=== PATIENT | male | born 1950 | race African-American/Black ===

== ENCOUNTER 2017-01-31 08:00 | Day surgery (SDC) | payer MEDICARE, OTHER ==
[2017-01-27 14:44] VITALS: BMI 23.6
[~2017-01-31 08:00] MED LIST: SODIUM CHLORIDE 0.9% 1,000 ML in EMPTY BAG 1 BAG IV ONE
[2017-01-31 08:36] VITALS: TEMP 98.2
[2017-01-31] MEDS ORDERED: ASPIRIN 81 MG CHEW ONE (08:42)
[2017-01-31] MEDS ORDERED: ASPIRIN 81 MG CHEW PO ONE (08:42)
[2017-01-31 08:58] LABS: Anisocytosis Slight; Basophils % (A) 1 %; CH 32.1; CHCM 31.5; Eosinophils # (A) 0.1 k/uL (0-0.7); Eosinophils % (A) 1 %; HCT 36.2 % (39.0-53.0); HDW 3.29; Hypochromasia Moderate; Luc # (Auto) 0.13; Luc % (Auto) 2; Lymphocytes # (A) 0.4 k/uL (1.0-4.8); Lymphocytes % (A) 6 %; MCH 33.9 pg (25.0-35.0); MCHC 33.1 g/dL (31.0-37.0); MCV 102.4 fL (80.0-100.0); Macrocytosis Moderate; Mean Platelet Volume 8.2; Monocytes # (A) 0.7 k/uL (0-1.0); Monocytes % (A) 11 %; Neutrophils # (A) 5.1 k/uL (1.3-7.7); Neutrophils % (A) 79 %; RBC 3.53 m/uL (4.30-5.90); RDW 19.4 % (11.5-15.5); WBC 6.4 k/uL (3.8-10.6); WBC (Perox) 6.57
[2017-01-31] MEDS ORDERED: MIDAZOLAM 2 MG/2 ML VIAL IVP ONE (08:58)
[2017-01-31 09:03] LABS: Potassium 5.3 mmol/L (3.5-5.1)
[2017-01-31] MEDS ORDERED: LIDOCAINE 2% INJ 20 MG/ML SQ ONE (09:04)
[2017-01-31] MEDS ORDERED: IODIXANOL 320 MG/ML 100 ML INTRAARTER ONE (09:26)
[2017-01-31] MEDS ORDERED: SODIUM CHLORIDE 0.9% 1,000 ML IV SCH (09:30)
--- NOTE | 2017-01-31 10:26 | IR ---
EXAMINATION TYPE: IR angio abdominal w runoff DATE OF EXAM: 01/31/2017 9:50 AM COMPARISON: NONE HISTORY: Peripheral vascular occlusive disease. Fluoroscopy was applied to the referring clinician. See dictated report from cardiology.
[2017-01-31] MEDS ORDERED: ACETAMINOPHEN TAB 325 MG TAB ONE (10:42)
[2017-01-31] MEDS ORDERED: ACETAMINOPHEN TAB 500 MG TAB PO STA (10:45)
--- NOTE | 2017-01-31 11:09 | PCN ---
DATE OF PROCEDURE: 01/31/2017 PERFORMING PHYSICIAN: Tunde Navarrete MD, derrick helper. PROCEDURE PERFORMED: 1. An abdominal aortogram. 2. Bilateral lower extremity runoff. INDICATION: This is a pleasant 66-year-old gentleman with a known history of end-stage renal disease on hemodialysis as well as known history of coronary artery disease and prior coronary artery bypass grafting as well as multiple comorbid conditions was diagnosed with critical limb ischemia (CLI) affecting the left foot. He has been struggling with nonhealing ulcer involving the third and fourth toe on the left side. He has been seeing Dr. Levy at the wound clinic as well. He was seen and evaluated by Dr. Sparks who recommended proceeding with an abdominal aortogram and bilateral lower extremity runoff. APPROACH: Right common femoral artery. COMPLICATIONS: None. LEVEL OF SEDATION: Moderate. PROCEDURE DESCRIPTION: After obtaining an informed consent, the patient was brought to the cardiac slab tripper. The right common femoral artery was cannulated using micropuncture technique. The micropuncture wire passed easily, then I placed a 5 Australian sheath 11 cm in the right common femoral artery. After that, I did an abdominal aortogram and bilateral lower extremity runoff using 5 Australian pigtail catheter which was initially placed at the level of the renal arteries then it was pulled into above the bifurcation of the aorta into right and left common iliac arteries. The procedure was completed without any complication. SELECTIVE PERIPHERAL ANGIOGRAM: 1. The abdominal aorta is heavily calcified with mild disease only. 2. Common iliac arteries: The right common iliac artery appeared to be also heavily calcified with mild disease only. The left common iliac artery appeared to be also heavily calcified with mild disease only. 3. The external iliac arteries: The right and left external iliac arteries appeared to be severely diseased. 4. The internal iliac arteries: The right and left internal iliac arteries seem to be patent. 5. The common femoral arteries. The right and left common femoral arteries are also heavily calcified with severe lesions bilaterally. 6. SFA: The right and left SFA are occluded on a long segment. 7. PROFUNDA: The right and left profunda are patent. The left profunda has severe lesion by the ostium as well as the right profunda. 8. POPLITEAL: The right and left popliteal are occluded. 9. BELOW THE KNEE: I could not see any opacification of any vessels below the knee bilaterally. CONCLUSION: 1. Heavily calcified peripheral arterial system. 2. Severe aortoiliac disease with severe disease involving the external iliac arteries bilaterally. 3. Severe femoropopliteal disease with severe disease involving the common femoral arteries bilaterally. 4. Severe disease affecting the profunda bilaterally. 5. Occluded bilateral superficial femoral artery. 6. Poor runoff below the knee bilaterally. POSTPROCEDURE MANAGEMENT: I discussed with the patient and his the finding. The patient is not a candidate for any surgical revascularization. The only thing he might benefit from is opening his iliac artery and opening the profunda and increasing the blood flow to collateral hoping that will heal his ulcer. PROFUNDA: And decreasing the blood flow to her collaterals hoping that it will heal his ulcer.
[2017-01-31 11:19] VITALS: RESP 16
--- NOTE | 2017-01-31 11:37 | LTR ---
January 31, 2017 BAILEY SPARKS DO RE: Jeovanny Flynn Dear Dr. Sparks: Mr. Jeovanny Flynn underwent a peripheral angiogram. As you remember, he is a pleasant 66-year-old gentleman with end-stage renal disease on hemodialysis, who was struggling with critical limb ischemia involving the left foot. The study today showed severe underlying peripheral arterial disease with occluded femoral artery bilaterally and no blood flow from the knee and down bilaterally as well. The only option left for this gentleman is to open his profunda and increase the blood flow to the collateral hoping that will help in healing that ulcer. Thank you for allowing me to participate in his care and please do not hesitate to call if you have any questions or concerns. Sincerely, ANGELES PENN MD
[2017-01-31 13:54] VITALS: PULSE 92
[2017-01-31 15:52] VITALS: BP 145/78
== END 2017-01-31 15:48 | disposition home or self-care (01) ==
LOC: CATHCVL 08:00
PROVIDERS: ATTEND Internal Medicine Interventional Cardiology
DX: I70.203 Unspecified atherosclerosis of native arteries of extremities, bilateral legs (principal); I70.0 Atherosclerosis of aorta; I73.9 Peripheral vascular disease, unspecified; I77.9 Disorder of arteries and arterioles, unspecified; I99.8 Other disorder of circulatory system; L97.529 Non-pressure chronic ulcer of other part of left foot with unspecified severity; E78.2 Mixed hyperlipidemia; I12.0 Hypertensive chronic kidney disease with stage 5 chronic kidney disease or end stage renal disease; N18.6 End stage renal disease; Z99.2 Dependence on renal dialysis; I25.10 Atherosclerotic heart disease of native coronary artery without angina pectoris; Z95.1 Presence of aortocoronary bypass graft; Z95.5 Presence of coronary angioplasty implant and graft; Z95.0 Presence of cardiac pacemaker; Z79.02 Long term (current) use of antithrombotics/antiplatelets; Z79.82 Long term (current) use of aspirin; Z79.899 Other long term (current) drug therapy; Z88.1 Allergy status to other antibiotic agents; Z88.0 Allergy status to penicillin; Z88.8 Allergy status to other drugs, medicaments and biological substances; Z87.891 Personal history of nicotine dependence
CPT/HCPCS: 36200; 75625; 75716; 80048; 85025; 99153; 99152; C1894; C1769 ×2; J2001; J2250; Q9967

== ENCOUNTER 2017-02-16 08:22 | Inpatient (IN) | payer MEDICARE, OTHER ==
[2017-02-16] MEDS ORDERED: SODIUM CHLORIDE 0.9% 500 ML IV STA (09:11)
[2017-02-16] MEDS ORDERED: MORPHINE SULFATE 4 MG/ML SYRINGE IV STA (09:11)
[2017-02-16 09:38] LABS: Anisocytosis Moderate; Basophils % (A) 1 %; CH 32.7; CHCM 31.1; Eosinophils # (A) 0.1 k/uL (0-0.7); Eosinophils % (A) 1 %; HCT 37.9 % (39.0-53.0); HGB 11.8 gm/dL (13.0-17.5); Hypochromasia Moderate; Luc % (Auto) 3; Lymphocytes # (A) 0.5 k/uL (1.0-4.8); Lymphocytes % (A) 7 %; MCHC 31.2 g/dL (31.0-37.0); MCV 105.7 fL (80.0-100.0); Macrocytosis Marked; Mean Platelet Volume 8.1; Monocytes # (A) 0.6 k/uL (0-1.0); Monocytes % (A) 9 %; Neutrophils # (A) 5.6 k/uL (1.3-7.7); Neutrophils % (A) 79 %; RBC 3.58 m/uL (4.30-5.90); RDW 20.3 % (11.5-15.5)
[2017-02-16 09:46] LABS: INR 1.1 (<1.1); Prothrombin Time 11.5 sec (9.0-12.0)
[2017-02-16 09:50] LABS: Calcium 9.7 mg/dL (8.4-10.2); Magnesium 2.2 mg/dL (1.6-2.3); Phosphorous 5.7 mg/dL (2.5-4.5); Total Bilirubin 1.1 mg/dL (0.2-1.3); Total Protein 8.4 g/dL (6.3-8.2)
--- NOTE | 2017-02-16 10:00 | XR ---
EXAMINATION TYPE: XR chest 2V DATE OF EXAM: 02/16/2017 9:44 AM COMPARISON: Prior chest x-ray 15 November 2015 HISTORY: Weakness and chest pain TECHNIQUE: Frontal and lateral views of the chest are obtained. FINDINGS: The patient is post median sternotomy. There has been interval placement of a pacemaker in the right pectoral region, leads are present in the right atrium and ventricle. There is no evident pneumothorax. Heart remains enlarged. Blunting of the costophrenic angle on the right is stable. The aorta is dense. Interstitium is somewhat improved. IMPRESSION: Stable cardiomegaly. There may be chronic pleural reaction. There may be improvement in patient's volume status, follow-up as indicated.
--- NOTE | 2017-02-16 10:00 | ED ---
General Adult HPI - General Chief complaint: Chest Pain Stated complaint: chest pain Time Seen by Provider: 02/16/17 08:57 Source: patient, family, RN notes reviewed, old records reviewed Mode of arrival: wheelchair Limitations: no limitations - History of Present Illness Initial comments: Is a 66-year-old male the ER for evaluation. Patient coming in for evaluation of pain, multiple areas of pain. Patient does suffer from arterial disease preferring arterial disease. Patient complaining of left toe pain left great toe pain which is chronic in nature, patient also has chest pain and bilateral shoulder pain. Patient has had a little bit of shortness of breath ground for a few days but just generally does not feel well. Patient's taking Tylenol for pain at home with no help. No nausea vomiting abdominal pain or diarrhea. No fevers - Related Data Home Medications Medication Instructions Recorded Confirmed Allopurinol [Zyloprim] 100 mg PO DAILY 06/17/14 02/16/17 Albuterol Nebulized [Ventolin 2.5 mg INHALATION RT-Q4H PRN 01/27/17 02/16/17 Nebulized] Budesonide [Pulmicort] 0.25 mg INHALATION RT-BID PRN 01/27/17 02/16/17 Cinacalcet [Sensipar] 30 mg PO MOTUWETHFR 01/27/17 02/16/17 Sevelamer [Renvela] 1,600 mg PO AC-TID 01/27/17 02/16/17 Sildenafil [Revatio] 20 mg PO TID 01/27/17 02/16/17 Acetaminophen [Tylenol] 1,000 mg PO Q4-6H PRN 01/31/17 02/16/17 Previous Rx's Medication Instructions Recorded Aspirin EC [Ecotrin Low Dose] 81 mg PO DAILY #60 tablet. 11/19/15 Clopidogrel [Plavix] 75 mg PO DAILY #60 tab 11/19/15 Ezetimibe [Zetia] 10 mg PO DAILY #60 tab 11/19/15 Metoprolol Succinate [Toprol XL] 25 mg PO DAILY #60 tab 11/19/15 Allergies Allergy/AdvReac Type Severity Reaction Status Date / Time ciprofloxacin [From Cipro] Allergy Intermediate Itching Verified 02/16/17 09:34 ciprofloxacin HCl Allergy Intermediate Itching Verified 02/16/17 09:34 [From Cipro] lorazepam [From Ativan] Allergy Intermediate Confusion Verified 02/16/17 09:34 Penicillins Allergy Intermediate Rash/Hives Verified 02/16/17 09:34 Vhlhsmo-Yeh-Zwa Reductase Allergy Intermediate Unknown Verified 02/16/17 09:34 Inhibitor Review of Systems ROS Statement: Those systems with pertinent positive or pertinent negative responses have been documented in the HPI. ROS Other: All systems not noted in ROS Statement are negative. Past Medical History Past Medical History: Coronary Artery Disease (CAD), Chest Pain / Angina, Heart Failure, Hyperlipidemia, Hypertension, Osteoarthritis (OA), Renal Disease, Sleep Apnea/CPAP/BIPAP Additional Past Medical History / Comment(s): Anemia, renal failure with dialysis M.W.F, uremic pericarditis, cardiomyopathy, , anemia of chronic disease , congestive heart failure History of Any Multi-Drug Resistant Organisms: None Reported Past Surgical History: Heart Catheterization, Heart Catheterization With Stent, Orthopedic Surgery, Pacemaker Additional Past Surgical History / Comment(s): R PATELLAR TENDON REPAIR, L ANKLE FX WITH SURGICAL REPAIR. COLONOSCOPIES WHICH HAVE BEEN NORMAL. vein stripping in anastasia. legs Past Anesthesia/Blood Transfusion Reactions: Motion Sickness, Postoperative Nausea & Vomiting (PONV) Additional Past Anesthesia/Blood Transfusion Reaction / Comment(s): PT HAS RECIEVED BLOOD WITHOUT REACTION Date of Last Stent Placement:: 11/18/2015 Type of Cardiac Device: Permanent Pacemaker Device Placement Date:: 09/29/2016 Past Psychological History: No Psychological Hx Reported Additional Psychological History / Comment(s): PT LIVE S WITH AT HOME. HE IS NORMALLY FAIRLY INDEPENDENT HOWEVER HE DOES TIRE EASILY. PT DRIVES A CAR. Smoking Status: Former smoker Past Alcohol Use History: None Reported Past Drug Use History: None Reported - Past Family History Brother(s) Family Medical History: Cancer Additional Family Medical History / Comment(s): breast, bone Father Family Medical History: Renal Disease Additional Family Medical History / Comment(s): FATHER AT AGE 47 YRS. Mother Family Medical History: Coronary Artery Disease (CAD) Additional Family Medical History / Comment(s): MOTHER AT AGE 83YRS. General Exam Limitations: no limitations General appearance: alert, in no apparent distress Head exam: Present: atraumatic, normocephalic, normal inspection Eye exam: Present: normal appearance, PERRL, EOMI. Absent: scleral icterus, conjunctival injection, periorbital swelling ENT exam: Present: normal exam, mucous membranes moist Neck exam: Present: normal inspection. Absent: tenderness, meningismus, lymphadenopathy Respiratory exam: Present: normal lung sounds bilaterally. Absent: respiratory distress, wheezes, rales, rhonchi, stridor Cardiovascular Exam: Present: regular rate, normal rhythm, normal heart sounds. Absent: systolic murmur, diastolic murmur, rubs, gallop, clicks GI/Abdominal exam: Present: soft, normal bowel sounds. Absent: distended, tenderness, guarding, rebound, rigid Extremities exam: Present: normal inspection, full ROM, normal capillary refill. Absent: tenderness, pedal edema, joint swelling, calf tenderness Back exam: Present: normal inspection Neurological exam: Present: alert, oriented X3, CN II-XII intact Psychiatric exam: Present: normal affect, normal mood Skin exam: Present: warm, dry, intact, normal color. Absent: rash Course Vital Signs 02/16/17 02/16/17 08:24 10:03 Temperature 98.1 F Pulse Rate 104 H 97 Respiratory 20 20 Rate Blood Pressure 122/64 137/83 O2 Sat by Pulse 97 96 Oximetry - Reevaluation(s) Reevaluation #1: 02/16/17 10:27 Patient is having adequate pain control at this time, resting comfortably EKG Findings - EKG Comments: EKG Findings:: EKG shows paced rhythm rate of 106, AL 174, QRS 110, QTC 496 Medical Decision Making - Medical Decision Making 66 mailed to the ER for evaluation. Patient presents today for evaluation of chest pain, shoulder pain, left toe pain. History of arterial disease peripheral arterial disease, patient having difficulty with pain control. Patient be admitted for cardiac observation and pain control, - Lab Data Result diagrams: 02/16/17 08:45 02/16/17 08:45 Lab Results 02/16/17 02/16/17 02/16/17 Range/Units 08:45 08:45 08:45 WBC 7.0 (3.8-10.6) k/uL RBC 3.58 L (4.30-5.90) m/uL Hgb 11.8 L (13.0-17.5) gm/dL Hct 37.9 L (39.0-53.0) % MCV 105.7 H (80.0-100.0) fL MCH 33.0 (25.0-35.0) pg MCHC 31.2 (31.0-37.0) g/dL RDW 20.3 H (11.5-15.5) % Plt Count 197 (150-450) k/uL Neutrophils % 79 % Lymphocytes % 7 % Monocytes % 9 % Eosinophils % 1 % Basophils % 1 % Neutrophils # 5.6 (1.3-7.7) k/uL Lymphocytes # 0.5 L (1.0-4.8) k/uL Monocytes # 0.6 (0-1.0) k/uL Eosinophils # 0.1 (0-0.7) k/uL Basophils # 0.0 (0-0.2) k/uL Manual Slide Review Performed Hypochromasia Moderate Poikilocytosis (manual Present Anisocytosis Moderate Macrocytosis Marked PT (9.0-12.0) sec INR (<1.1) APTT (22.0-30.0) sec Sodium 139 (137-145) mmol/L Potassium 5.0 (3.5-5.1) mmol/L Chloride 91 L (98-107) mmol/L Carbon Dioxide 28 (22-30) mmol/L Anion Gap 20 mmol/L BUN 36 H (9-20) mg/dL Creatinine 7.07 H* (0.66-1.25) mg/dL Est GFR (MDRD) Af Amer 9 (>60 ml/min/1.73 sqM) Est GFR (MDRD) Non-Af 8 (>60 ml/min/1.73 sqM) Glucose 135 H (74-99) mg/dL Calcium 9.7 (8.4-10.2) mg/dL Phosphorus 5.7 H (2.5-4.5) mg/dL Magnesium 2.2 (1.6-2.3) mg/dL Total Bilirubin 1.1 (0.2-1.3) mg/dL AST 29 (17-59) U/L ALT 23 (21-72) U/L Alkaline Phosphatase 133 H (38-126) U/L Total Creatine Kinase 35 L (55-170) U/L CK-MB (CK-2) 1.7 (0.0-2.4) ng/mL CK-MB (CK-2) Rel Index 4.9 Troponin I 0.059 H* (0.000-0.034) ng/mL Total Protein 8.4 H (6.3-8.2) g/dL Albumin 4.8 (3.5-5.0) g/dL 02/16/17 Range/Units 08:45 WBC (3.8-10.6) k/uL RBC (4.30-5.90) m/uL Hgb (13.0-17.5) gm/dL Hct (39.0-53.0) % MCV (80.0-100.0) fL MCH (25.0-35.0) pg MCHC (31.0-37.0) g/dL RDW (11.5-15.5) % Plt Count (150-450) k/uL Neutrophils % % Lymphocytes % % Monocytes % % Eosinophils % % Basophils % % Neutrophils # (1.3-7.7) k/uL Lymphocytes # (1.0-4.8) k/uL Monocytes # (0-1.0) k/uL Eosinophils # (0-0.7) k/uL Basophils # (0-0.2) k/uL Manual Slide Review Hypochromasia Poikilocytosis (manual Anisocytosis Macrocytosis PT 11.5 (9.0-12.0) sec INR 1.1 (<1.1) APTT 25.0 (22.0-30.0) sec Sodium (137-145) mmol/L Potassium (3.5-5.1) mmol/L Chloride (98-107) mmol/L Carbon Dioxide (22-30) mmol/L Anion Gap mmol/L BUN (9-20) mg/dL Creatinine (0.66-1.25) mg/dL Est GFR (MDRD) Af Amer (>60 ml/min/1.73 sqM) Est GFR (MDRD) Non-Af (>60 ml/min/1.73 sqM) Glucose (74-99) mg/dL Calcium (8.4-10.2) mg/dL Phosphorus (2.5-4.5) mg/dL Magnesium (1.6-2.3) mg/dL Total Bilirubin (0.2-1.3) mg/dL AST (17-59) U/L ALT (21-72) U/L Alkaline Phosphatase (38-126) U/L Total Creatine Kinase (55-170) U/L CK-MB (CK-2) (0.0-2.4) ng/mL CK-MB (CK-2) Rel Index Troponin I (0.000-0.034) ng/mL Total Protein (6.3-8.2) g/dL Albumin (3.5-5.0) g/dL - Radiology Data Radiology results: report reviewed (Chest x-ray is negative for acute disease), image reviewed Disposition Clinical Impression: S/P CABG x 5, S/P cardiac catheterization, End stage renal disease on dialysis , Toe pain, left, PAD (peripheral artery disease), Chest pain Disposition: ADMITTED IP TO THIS HOSP Condition: Fair Referrals: Xochitl Sparks DO [Primary Care Provider] - 1-2 days
[2017-02-16 10:09] LABS: Manual Review Performed
[2017-02-16 10:12] LABS: Creatine Kinase MB 1.7 ng/mL (0.0-2.4)
[2017-02-16 10:15] LABS: Troponin I 0.059 ng/mL (0.000-0.034)
[2017-02-16] MEDS ORDERED: NITROGLYCERIN SL TABS 0.4 MG TAB SUBLINGUAL PRN ×2 (10:24→15:10)
[2017-02-16] MEDS ORDERED: HEPARIN SODIUM,PORCINE 5,000 UNIT/ML 1 ML VIAL IV ONE (10:24)
[2017-02-16] MEDS: HEPARIN SODIUM,PORCINE/D5W PMX 25,000 UNIT in DEXTROSE/WATER 1 500ML.BAG IV SCH (13:04)
[2017-02-16] MEDS: MORPHINE SULFATE 4 MG/ML SYRINGE IV PRN ×2 (14:05→20:06)
[2017-02-16] MEDS ORDERED: ALBUTEROL NEBULIZED 2.5 MG/3 ML INHALATION PRN (14:39)
[2017-02-16] MEDS ORDERED: BUDESONIDE 0.25 MG/2 ML NEBU INHALATION PRN (14:39)
[2017-02-16] MEDS ORDERED: ACETAMINOPHEN TAB 500 MG TAB PO PRN (14:39)
--- NOTE | 2017-02-16 15:09 | P.HPIM ---
History of Present Illness H&P Date: 02/16/17 Chief Complaint: Bilateral leg pain with chest pain This is a 66-year-old male, a patient of . He has a known past medical history of end-stage renal disease, PAD, hypertension, coronary artery disease with previous stent and CABG 5 vessels, pacemaker, severe pulmonary hypertension and congestive heart failure. Patient presents to the emergency room with complaints of severe bilateral leg pain. He states that when the legs start hurting so severe he does start to have chest pain. Patient no has known peripheral arterial disease has been seen by Dr. Vivar and had an angiogram on 01/31/2017 which showed severe peripheral arterial disease with occluded femoral artery bilaterally and no blood flow from the knee down bilaterally. He was to follow-up with Dr. Vivar to set up appointment for procedure. However since then he is had worsening pain. He states he was just taking Tylenol for pain with no improvement. Patient is been placed on IV heparin and IV morphine for pain. Cardiology has been consulted. He is also followed up with Dr. Levy in the wound care center at [facility]. Patient has been doing topical creams to this area. There is drainage noted on the ulcers of his toes. He has ulcers on toe 3 and 4. These will be cultured. Troponin 0.059. EKG had shown atrial paced rhythm chest x-ray had shown chronic pleural reaction improvement in volume status. Patient denies any fever , chills, sweats. Denies any shortness of breath. Denies a nausea vomiting. Denies any bowel movement changes. And he does still make some urine. Review of Systems Please refer to HPI otherwise unremarkable Past Medical History Past Medical History: Coronary Artery Disease (CAD), Chest Pain / Angina, Heart Failure, GI Bleed, Hyperlipidemia, Hypertension, Osteoarthritis (OA), Pneumonia , Renal Disease, Sleep Apnea/CPAP/BIPAP, Vascular Disorder Additional Past Medical History / Comment(s): Anemia, renal failure with dialysis M.W.F, uremic pericarditis, cardiomyopathy, PAD, current L foot 3rd and 4th toe wounds-seeing Dr. Levy in [facility], ESRD with hemodialysis M,W, F last received yesterday, numbness/tingling bilateral feet, bilateral foot gout, O2 at 4L/NC ATC, past pleural effusions, lower GI bleed. History of Any Multi-Drug Resistant Organisms: None Reported Past Surgical History: Appendectomy, Coronary Bypass/CABG, Heart Catheterization , Heart Catheterization With Stent, Orthopedic Surgery, Pacemaker Additional Past Surgical History / Comment(s): 01/31/17 abdominal aortogram with bilateral extremity run-off, 08/19/14 CABG 5 vessel several cardiac caths, PCI with stents, debridement L foot wound, R PATELLAR TENDON REPAIR, L ANKLE FX WITH SURGICAL REPAIR. EGD/COLONOSCOPIES WHICH HAVE BEEN NORMAL. vein stripping in anastasia. legs, 2011 throacenttesis, 2009 AV fistual L upper arm, Past Anesthesia/Blood Transfusion Reactions: Motion Sickness, Postoperative Nausea & Vomiting (PONV) Additional Past Anesthesia/Blood Transfusion Reaction / Comment(s): PT HAS RECIEVED BLOOD WITHOUT REACTION Date of Last Stent Placement:: 09/30/16 Type of Cardiac Device: Permanent Pacemaker Device Placement Date:: 09/29/2016 Past Psychological History: No Psychological Hx Reported Additional Psychological History / Comment(s): PT LIVES WITH OF 44 YRS AT HOME. HE IS NORMALLY FAIRLY INDEPENDENT HOWEVER HE DOES TIRE EASILY. PT NORMALLY DRIVES A CAR. HE USES A CANE OR WALKER PRN. HE IS ON O2 AT 4L/NC ATC. HE HAS [facility]. HE HAS A NEBULIZER. Smoking Status: Former smoker Past Alcohol Use History: None Reported Additional Past Alcohol Use History / Comment(s): Pt started smoking in 1968 and quit in 2003. Past Drug Use History: None Reported - Past Family History Brother(s) Family Medical History: Cancer Additional Family Medical History / Comment(s): breast, bone Father Family Medical History: Renal Disease Additional Family Medical History / Comment(s): FATHER AT AGE 47 YRS FROM KIDNEY FAILURE. Mother Family Medical History: Coronary Artery Disease (CAD) Additional Family Medical History / Comment(s): MOTHER AT AGE 83YRS. Medications and Allergies Home Medications Medication Instructions Recorded Confirmed Type Allopurinol [Zyloprim] 100 mg PO DAILY 06/17/14 02/16/17 History Albuterol Nebulized [Ventolin 2.5 mg INHALATION RT-Q4H PRN 01/27/17 02/16/17 History Nebulized] Budesonide [Pulmicort] 0.25 mg INHALATION RT-BID PRN 01/27/17 02/16/17 History Cinacalcet [Sensipar] 30 mg PO MOTUWETHFR 01/27/17 02/16/17 History Sevelamer [Renvela] 1,600 mg PO AC-TID 01/27/17 02/16/17 History Sildenafil [Revatio] 20 mg PO TID 01/27/17 02/16/17 History Acetaminophen [Tylenol] 1,000 mg PO Q4-6H PRN 01/31/17 02/16/17 History Allergies Allergy/AdvReac Type Severity Reaction Status Date / Time ciprofloxacin [From Cipro] Allergy Intermediate Itching Verified 02/16/17 09:34 ciprofloxacin HCl Allergy Intermediate Itching Verified 02/16/17 09:34 [From Cipro] lorazepam [From Ativan] Allergy Intermediate Confusion Verified 02/16/17 09:34 Penicillins Allergy Intermediate Rash/Hives Verified 02/16/17 09:34 [id number] Reductase Allergy Intermediate Unknown Verified 02/16/17 09:34 Inhibitor Physical Exam Vitals: Vital Signs Pulse Pulse Resp BP BP Pulse Ox 02/16/17 12:50 98 18 131/82 94 L 02/16/17 11:15 95 18 118/80 96 02/16/17 10:45 94 18 141/92 94 L Head normocephalic Neck supple Lungs clear to auscultation bilaterally no wheezing or crackles Heart regular rate and rhythm S1-S2, no rub or gallop positive murmur Abdomen is soft nontender distended positive bowel sounds no hepatosplenomegaly Extremities no edema. Both legs are tender with palpation. Left foot ulcers on toes 3 and 4 draining pus. Ulcers between the toes. Neuro alert and orientated to 3 Results CBC & Chem 7: 02/16/17 08:45 02/16/17 08:45 Thrombosis Risk Factor Assmnt - Choose All That Apply Any of the Below Risk Factors Present?: Yes Each Factor Represents 1 point: Medical pt on bed rest Other Risk Factors: Yes Each Risk Factor Represents 2 Points: Age 61-74 years Other congenital or acquired thrombophilia - If yes, enter type in comment: No Thrombosis Risk Factor Assessment Total Risk Factor Score: 3 Thrombosis Risk Factor Assessment Level: Moderate Risk Assessment and Plan Plan: 1. Severe Peripheral arterial disease with ulcers on toes 3 and 4 on left foot. Patient had angiogram in 01/31/2017 showing occluded femoral artery bilaterally and no blood flow from the knee down bilaterally. Patient be placed on IV heparin. After Sk[facility] has been consulted. Infectious disease has also been consulted for wound care on those toes. We'll obtain culture of the toe drainage. 2. End-stage renal disease: Dialysis Monday. Nephrology has been consulted 3. History of coronary artery disease with previous cardiac stents and coronary bypass grafting 5 vessels in 2013 4. History of severe pulmonary hypertension on Revatio 5. Hyperphosphatemia continue home medication. Repeat phosphorus level in a.m. 6. Episodes of chest pain: Troponin 0.059. Cardiology consulted. 7. Essential hypertension GI prophylaxis Pepcid and DVT prophylaxis IV heparin Time with Patient: Greater than 30 (Greater than 50% of the total time spent in counseling and coordination of care.I performed an examination of the patient and discussed their management with the physician [employer]. I have reviewed the Physician [employer]'s notes and agree with the documented findings and plan of care)
[2017-02-16 16:02] LABS: Creatine Kinase MB 1.7 ng/mL (0.0-2.4)
[2017-02-16] MEDS: SEVELAMER 800 MG TAB PO SCH (16:22)
[2017-02-16] MEDS: SILDENAFIL 20 MG TAB PO SCH ×2 (16:23→22:18)
[2017-02-16 16:25] LABS: Troponin I 0.053 ng/mL (0.000-0.034)
[2017-02-16 21:53] LABS: Creatine Kinase MB 1.9 ng/mL (0.0-2.4)
[2017-02-16 22:00] LABS: Troponin I 0.05 ng/mL (0.000-0.034)
[2017-02-17] MEDS: MORPHINE SULFATE 4 MG/ML SYRINGE IV PRN ×3 (04:17→20:48)
[2017-02-17] MEDS: HEPARIN SODIUM,PORCINE 5,000 UNIT/ML 1 ML VIAL IV PRN ×2 (06:01→23:13)
[2017-02-17 06:06] LABS: Calcium 9.4 mg/dL (8.4-10.2); Potassium 5.4 mmol/L (3.5-5.1); Total Bilirubin 0.9 mg/dL (0.2-1.3); Total Protein 7.6 g/dL (6.3-8.2)
[2017-02-17] MEDS: SEVELAMER 800 MG TAB PO SCH ×4 (07:14→19:07)
--- NOTE | 2017-02-17 08:48 | P.CRDCN ---
History of Present Illness Consult date: 02/17/17 Requesting physician: Betty Roe Consult reason: chest pain Chief complaint: Left Foot pain and chest pain History of present illness: This is a pleasant 66-year-old -[place] gentleman who follows with Dr. Vivar in the office. He has known history of end-stage renal disease on hemodialysis, coronary artery disease with prior bypass surgery, prior stent placement, prior pacemaker, hypertension, hyperlipidemia, peripheral vascular disease, who was recently in the hospital in January of this year at which time he underwent an abdominal aortogram with bilateral lower extremity runoff by Dr. Vivar. Patient was found to have a heavily calcified peripheral arterial system with severe aortoiliac disease involving the external iliac arteries bilaterally. Severe femoral popliteal disease with severe disease involving the common femoral arteries bilaterally, severe disease affecting the profunda bilaterally and occluded bilateral superficial femoral artery. He presents to the hospital on this occasion with symptoms of severe pain in his left foot, subsequent to that patient states he developed upper chest discomfort with radiation to the shoulders. At the time of my examination this morning his main complaint is that of mild nausea and considerable pain in his left great toe and foot. Chest X-ray on admission revealed stable cardiomegaly. EKG shows atrial sensed V paced rhythm. Hemoglobin 11.8, potassium 5.4, U and 48, creatinine 8.7. Troponins 0.05.05.05. Blood Pressure 122/76 with a heart rate of 100 temperature 97.9. Past Medical History Past Medical History: Coronary Artery Disease (CAD), Chest Pain / Angina, Heart Failure, GI Bleed, Hyperlipidemia, Hypertension, Osteoarthritis (OA), Pneumonia , Renal Disease, Sleep Apnea/CPAP/BIPAP, Vascular Disorder Additional Past Medical History / Comment(s): Anemia, renal failure with dialysis M.W.F, uremic pericarditis, cardiomyopathy, PAD, current L foot 3rd and 4th toe wounds-seeing Dr. Leyv in [facility], ESRD with hemodialysis M,W, F last received yesterday, numbness/tingling bilateral feet, bilateral foot gout, O2 at 4L/NC ATC, past pleural effusions, lower GI bleed. History of Any Multi-Drug Resistant Organisms: None Reported Past Surgical History: Appendectomy, Coronary Bypass/CABG, Heart Catheterization , Heart Catheterization With Stent, Orthopedic Surgery, Pacemaker Additional Past Surgical History / Comment(s): 01/31/17 abdominal aortogram with bilateral extremity run-off, 08/19/14 CABG 5 vessel several cardiac caths, PCI with stents, debridement L foot wound, R PATELLAR TENDON REPAIR, L ANKLE FX WITH SURGICAL REPAIR. EGD/COLONOSCOPIES WHICH HAVE BEEN NORMAL. vein stripping in anastasia. legs, 2011 throacenttesis, 2009 AV fistual L upper arm, Past Anesthesia/Blood Transfusion Reactions: Motion Sickness, Postoperative Nausea & Vomiting (PONV) Additional Past Anesthesia/Blood Transfusion Reaction / Comment(s): PT HAS RECIEVED BLOOD WITHOUT REACTION Date of Last Stent Placement:: 09/30/16 Type of Cardiac Device: Permanent Pacemaker Device Placement Date:: 09/29/2016 Past Psychological History: No Psychological Hx Reported Additional Psychological History / Comment(s): PT LIVES WITH OF 44 YRS AT HOME. HE IS NORMALLY FAIRLY INDEPENDENT HOWEVER HE DOES TIRE EASILY. PT NORMALLY DRIVES A CAR. HE USES A CANE OR WALKER PRN. HE IS ON O2 AT 4L/NC ATC. HE HAS [facility]. HE HAS A NEBULIZER. Smoking Status: Former smoker Past Alcohol Use History: None Reported Additional Past Alcohol Use History / Comment(s): Pt started smoking in 1968 and quit in 2003. Past Drug Use History: None Reported - Past Family History Brother(s) Family Medical History: Cancer Additional Family Medical History / Comment(s): breast, bone Father Family Medical History: Renal Disease Additional Family Medical History / Comment(s): FATHER AT AGE 47 YRS FROM KIDNEY FAILURE. Mother Family Medical History: Coronary Artery Disease (CAD) Additional Family Medical History / Comment(s): MOTHER AT AGE 83YRS. Medications and Allergies Home Medications Medication Instructions Recorded Confirmed Type Allopurinol [Zyloprim] 100 mg PO DAILY 06/17/14 02/16/17 History Albuterol Nebulized [Ventolin 2.5 mg INHALATION RT-Q4H PRN 01/27/17 02/16/17 History Nebulized] Budesonide [Pulmicort] 0.25 mg INHALATION RT-BID PRN 01/27/17 02/16/17 History Cinacalcet [Sensipar] 30 mg PO MOTUWETHFR 01/27/17 02/16/17 History Sevelamer [Renvela] 1,600 mg PO AC-TID 01/27/17 02/16/17 History Sildenafil [Revatio] 20 mg PO TID 01/27/17 02/16/17 History Acetaminophen [Tylenol] 1,000 mg PO Q4-6H PRN 01/31/17 02/16/17 History Allergies Allergy/AdvReac Type Severity Reaction Status Date / Time ciprofloxacin [From Cipro] Allergy Intermediate Itching Verified 02/16/17 09:34 ciprofloxacin HCl Allergy Intermediate Itching Verified 02/16/17 09:34 [From Cipro] lorazepam [From Ativan] Allergy Intermediate Confusion Verified 02/16/17 09:34 Penicillins Allergy Intermediate Rash/Hives Verified 02/16/17 09:34 Shpnkux-Qhm-Fjo Reductase Allergy Intermediate Unknown Verified 02/16/17 09:34 Inhibitor Physical Exam Vitals: Vital Signs Temp Pulse Pulse Resp BP BP Pulse Ox 02/17/17 04:00 97.9 F 99 18 124/84 98 02/17/17 00:00 98.3 F 99 18 121/93 97 02/16/17 20:00 97.0 F L 99 18 127/74 99 02/16/17 15:55 93 18 135/90 97 02/16/17 15:08 94 16 134/88 98 02/16/17 12:50 98 18 131/82 94 L 02/16/17 11:15 95 18 118/80 96 02/16/17 10:45 94 18 141/92 94 L Intake and Output 02/16/17 02/17/17 02/17/17 22:59 06:59 14:59 Intake Total 163.728 942.94 Balance 163.728 942.94 Intake: IV 740 Heparin Sodium,Porcine/ 140 D5w Pmx 25,000 unit In Dextrose/Water 1 500ml. bag @ 12 UNITS/KG/HR 17. 52 mls/hr IV .Q24H RU Rx #:[id number] Sodium Chloride 0.9% 500 600 ml @ 999 mls/hr IV .Q31M STA Rx#:[id number] Intake, IV Titration 53.728 202.94 Amount Heparin Sodium,Porcine/ 53.728 202.94 D5w Pmx 25,000 unit In Dextrose/Water 1 500ml. bag @ 12 UNITS/KG/HR 17. 52 mls/hr IV .Q24H RU Rx #:[id number] Oral 110 Other: # Voids 0 2 Weight 76 kg PHYSICAL EXAMINATION: HEENT: Head is atraumatic, normocephalic. Pupils equal, round. Neck is supple. There is no elevated jugular venous pressure. HEART EXAMINATION: Heart S1 and S2 systolic ejection murmur is heard. CHEST EXAMINATION: Lungs are clear to auscultation and precussion. No chest wall tenderness is noted on palpation or with deep breathing. ABDOMEN: Soft, nontender. Bowel sounds are heard. No organomegaly noted. EXTREMITIES:[ Doppler pulses popliteal. Right and left foot cool to the touch. NEUROLOGIC patient is awake, alert and oriented -3. . Results 02/16/17 08:45 02/17/17 05:18 Cardiac Enzymes 02/16/17 02/16/17 02/17/17 Range/Units 15:27 20:54 05:18 AST 18 (17-59) U/L CK-MB (CK-2) 1.7 1.9 (0.0-2.4) ng/mL Troponin I 0.053 H* 0.050 H* (0.000-0.034) ng/mL Coagulation 02/16/17 02/16/17 02/17/17 Range/Units 15:27 20:54 05:18 APTT 80.8 H 31.7 H 28.6 (22.0-30.0) sec Lipids 02/17/17 Range/Units 05:18 Triglycerides 77 (<150) mg/dL Cholesterol 147 (<200) mg/dL HDL Cholesterol 60 (40-60) mg/dL Comprehensive Metabolic Panel 02/17/17 Range/Units 05:18 Sodium 140 (137-145) mmol/L Potassium 5.4 H (3.5-5.1) mmol/L Chloride 93 L (98-107) mmol/L Carbon Dioxide 28 (22-30) mmol/L BUN 48 H (9-20) mg/dL Creatinine 8.79 H* (0.66-1.25) mg/dL Glucose 100 H (74-99) mg/dL Calcium 9.4 (8.4-10.2) mg/dL AST 18 (17-59) U/L ALT 23 (21-72) U/L Alkaline Phosphatase 127 H (38-126) U/L Total Protein 7.6 (6.3-8.2) g/dL Albumin 4.4 (3.5-5.0) g/dL Current Medications Generic Name Dose Route Start Last Admin Trade Name Freq PRN Reason Stop Dose Admin Acetaminophen 1,000 mg 02/16/17 14:39 Tylenol Tab PO Q6H PRN Moderate Pain Albuterol Sulfate 2.5 mg 02/16/17 14:39 Ventolin Nebulized INHALATION RT-Q4H PRN Dyspnea Allopurinol 100 mg 02/17/17 09:00 Zyloprim PO DAILY [facility] Aspirin 325 mg 02/17/17 09:00 Aspirin PO DAILY [facility] Budesonide 0.25 mg 02/16/17 14:39 Pulmicort INHALATION RT-BID PRN Dyspnea Cinacalcet 30 mg 02/17/17 09:00 Sensipar PO MOTUWETHFR [facility] Clopidogrel Bisulfate 75 mg 02/17/17 09:00 Plavix PO DAILY [facility] Ezetimibe 10 mg 02/17/17 09:00 Zetia PO DAILY [facility] Heparin Sodium (Porcine) 0 unit 02/16/17 10:24 02/17/17 06:01 Heparin IV 4,000 unit Q6HR PRN Administration Low PTT Protocol Heparin Sodium/Dextrose 25,000 500 mls @ 17.52 mls/hr 02/16/17 10:30 06:02 unit/ IV Solution IV 13 units/kg/hr .Q24H RU 18.98 mls/hr Protocol Titration 12 UNITS/KG/HR Metoprolol Succinate 25 mg 02/17/17 09:00 Toprol Xl PO DAILY [facility] Morphine Sulfate 4 mg 02/16/17 10:24 02/17/17 04:17 Morphine Sulfate (Inj) IV 4 mg Q4HR PRN Administration Chest Pain Nitroglycerin 0.4 mg 02/16/17 15:10 Nitrostat SUBLINGUAL Q5M PRN Chest Pain Sevelamer Carbonate 1,600 mg 02/16/17 17:30 02/17/17 07:16 Renvela PO Not Given AC-TID [facility] Sildenafil Citrate 20 mg 02/16/17 16:00 02/16/17 22:18 Revatio PO 20 mg TID RU Administration Intake and Output 02/16/17 02/17/17 02/17/17 22:59 06:59 14:59 Intake Total 163.728 942.94 Balance 163.728 942.94 Intake: IV 740 Heparin Sodium,Porcine/ 140 D5w Pmx 25,000 unit In Dextrose/Water 1 500ml. bag @ 12 UNITS/KG/HR 17. 52 mls/hr IV .Q24H RU Rx #:[id number] Sodium Chloride 0.9% 500 600 ml @ 999 mls/hr IV .Q31M STA Rx#:[id number] Intake, IV Titration 53.728 202.94 Amount Heparin Sodium,Porcine/ 53.728 202.94 D5w Pmx 25,000 unit In Dextrose/Water 1 500ml. bag @ 12 UNITS/KG/HR 17. 52 mls/hr IV .Q24H RU Rx #:[id number] Oral 110 Other: # Voids 0 2 Weight 76 kg 02/17/17 05:18 EKG Interpretations (text) EKG shows an A sensed V paced rhythm. Assessment and Plan Plan: Assessment and plan #1 symptoms of severe left foot pain in a patient with known peripheral vascular disease status post abdominal aortogram and bilateral lower extremity runoff in January, which revealed heavily calcified peripheral arterial system with severe aortoiliac disease involving the external iliac arteries bilaterally , severe femoropopliteal disease, severe disease affecting the profunda bilaterally and occluded bilateral superficial femoral artery. #2 chest pain, atypical in nature. Troponins 0.05, 0.05, 0.05, EKG shows a sensed V paced rhythm. Troponin abnormality likely secondary to abnormal renal function. #3 end-stage renal disease on hemodialysis #4 hypertension #5 hyperlipidemia #6 known history of coronary artery disease with prior bypass surgery and stent placements Plan At this time we're to continue the patient's IV heparin, continue aspirin as well as his other home medications. Further recommendations to follow. DNP note has been reviewed, I agree with a documented findings and plan of care. Patient was seen and examined.
[2017-02-17] MEDS ORDERED: NON-FORMULARY DRUG (Aspirin Ec 81 MG) PO SCH (09:00)
[2017-02-17] MEDS ORDERED: SIMETHICONE 80 MG CHEWABLE PO PRN (10:57)
--- NOTE | 2017-02-17 11:05 | P.PN ---
Subjective This is a 66-year-old male, a patient of . He has a known past medical history of end-stage renal disease, PAD, hypertension, coronary artery disease with previous stent and CABG 5 vessels, pacemaker, severe pulmonary hypertension and congestive heart failure. Patient presents to the emergency room with complaints of severe bilateral leg pain. He states that when the legs start hurting so severe he does start to have chest pain. Patient no has known peripheral arterial disease has been seen by Dr. Vivar and had an angiogram on 01/31/2017 which showed severe peripheral arterial disease with occluded femoral artery bilaterally and no blood flow from the knee down bilaterally. Patient also has ulcers on the toes of the left foot. Infectious disease and cardiogenic following. Patient is maintained on IV heparin. Pain is tolerable. Chest pain has resolved. Denies any nausea or vomiting. He does reports small bowel movement yesterday. Denies any difficulty urinating. Objective - Vital Signs Vital signs: Vital Signs Temp 97.9 F 02/17/17 08:00 Pulse 100 02/17/17 08:00 Resp 16 02/17/17 08:00 BP 123/76 02/17/17 08:00 Pulse Ox 95 02/17/17 08:00 Intake & Output 02/16/17 02/17/17 02/17/17 18:59 06:59 18:59 Intake Total 163.728 942.94 Balance 163.728 942.94 Weight 76 kg Intake: IV 740 Heparin Sodium,Porcine/ 140 D5w Pmx 25,000 unit In Dextrose/Water 1 500ml. bag @ 12 UNITS/KG/HR 17. 52 mls/hr IV .Q24H RU Rx #:[id number] Sodium Chloride 0.9% 500 600 ml @ 999 mls/hr IV .Q31M STA Rx#:[id number] Intake, IV Titration 53.728 202.94 Amount Heparin Sodium,Porcine/ 53.728 202.94 D5w Pmx 25,000 unit In Dextrose/Water 1 500ml. bag @ 12 UNITS/KG/HR 17. 52 mls/hr IV .Q24H RU Rx #:[id number] Oral 110 Other: # Voids 0 2 - Exam Head normocephalic Neck supple Lungs clear to auscultation bilaterally no wheezing or crackles Heart regular rate and rhythm S1-S2, no rub or gallop positive murmur Abdomen is soft nontender distended positive bowel sounds Extremities no edema. Both legs are tender with palpation. Left foot ulcers on toes 3 and 4 draining pus. Ulcers between the toes. Neuro alert and orientated to 3 - Labs CBC & Chem 7: 02/16/17 08:45 02/17/17 05:18 Labs: Abnormal Lab Results - Last 24 Hours (Table) 02/16/17 02/16/17 02/16/17 Range/Units 15:27 15:27 20:54 APTT 80.8 H (22.0-30.0) sec Potassium (3.5-5.1) mmol/L Chloride (98-107) mmol/L BUN (9-20) mg/dL Creatinine (0.66-1.25) mg/dL Glucose (74-99) mg/dL Phosphorus (2.5-4.5) mg/dL Alkaline Phosphatase (38-126) U/L Total Creatine Kinase 31 L 32 L (55-170) U/L Troponin I 0.053 H* 0.050 H* (0.000-0.034) ng/mL 02/16/17 02/17/17 Range/Units 20:54 05:18 APTT 31.7 H (22.0-30.0) sec Potassium 5.4 H (3.5-5.1) mmol/L Chloride 93 L (98-107) mmol/L BUN 48 H (9-20) mg/dL Creatinine 8.79 H* (0.66-1.25) mg/dL Glucose 100 H (74-99) mg/dL Phosphorus 7.0 H (2.5-4.5) mg/dL Alkaline Phosphatase 127 H (38-126) U/L Total Creatine Kinase (55-170) U/L Troponin I (0.000-0.034) ng/mL Microbiology - Last 24 Hours (Table) 02/16/17 15:00 Gram Stain - Preliminary Toe - Left Third Wound Culture - Preliminary Assessment and Plan Plan: 1. Severe Peripheral arterial disease with ulcers on toes 3 and 4 on left foot. Patient had angiogram in 01/31/2017 showing occluded femoral artery bilaterally and no blood flow from the knee down bilaterally. Patient be placed on IV heparin. After Skaff has been consulted. Infectious disease has also been consulted for wound care on those toes. Wound culture growing gram- negative bacilli 2. End-stage renal disease: Dialysis Monday. Nephrology has been consulted 3. History of coronary artery disease with previous cardiac stents and coronary bypass grafting 5 vessels in 2013 4. History of severe pulmonary hypertension on Revatio 5. Hyperphosphatemia continue home medication. Repeat phosphorus level in a.m. 6. Episodes of chest pain: Atypical. Evaluated by cardiology. Likely mildly elevated troponins are related to his renal failure 7. Essential hypertension 8. Mild abdominal distention: Check abdominal x-ray as well as simethicone. Patient reports he is had problems with abdominal distention after his appendectomy and hernia repair in October. Last bowel movement yesterday. Denies any abdominal pain GI prophylaxis Pepcid and DVT prophylaxis IV heparin I performed an examination of the patient and discussed their management with the physician Cowlman. I have reviewed the Physician Cowlman's notes and agree with the documented findings and plan of care
--- NOTE | 2017-02-17 14:00 | XR ---
EXAMINATION TYPE: XR abdomen 2V DATE OF EXAM: 02/17/2017 1:56 PM COMPARISON: NONE HISTORY: Pain TECHNIQUE: multiview abdomen FINDINGS: Small bowel demonstrates no evidence for dilatation or air fluid levels. Gas and fecal material is seen in non-distended colon. No convincing evidence for pneumoperitoneum. No unusual calcifications. The lung bases are clear. The osseous structures are intact. IMPRESSION: 1. Overall nonobstructive bowel gas pattern.
[2017-02-17 17:48] LABS: Hepatitis B Surface Ag Index 0.08
[2017-02-17 18:11] LABS: Hepatitis B Surface Antibody Negative (Negative)
--- NOTE | 2017-02-17 18:34 | CONS ---
DATE OF CONSULTATION: 02/17/2017. REASON FOR CONSULTATION: End-stage renal disease. HISTORY OF PRESENT ILLNESS: Patient is a 66-year-old male who was admitted to the hospital with complaints of pain in bilateral feet. Patient has had an arteriogram done as outpatient which showed bilateral occluded superficial femoral artery and consideration for further intervention from cardiology standpoint. No chest pains. No significant shortness of breath. Patient is normally maintained on a Monday, Monday, Monday schedule for hemodialysis via left arm AV fistula. PAST MEDICAL HISTORY: Coronary artery disease, chest pain, severe pulmonary hypertension, osteoarthritis, pneumonia, obstructive sleep apnea, history of gastrointestinal bleed, peripheral vascular disease, cardiomyopathy, wound in the third and fourth toes of the left foot, being followed at the wound clinic. PAST SURGICAL HISTORY: Coronary artery bypass surgery, cardiac catheterization, pacemaker placement, recent angiogram, previous debridement in the left foot wound, left ankle surgery, thoracentesis and AV fistula. SOCIAL HISTORY: The patient is an ex-smoker. No history of drug abuse or alcohol abuse. Medications prior to admission included: 1. Zyloprim. 2. Albuterol. 3. Sensipar. 4. ( ). 5. Tylenol. 6. Pulmicort. ALLERGIES INCLUDE CIPRO, ATIVAN, PENICILLIN, AND STATINS. REVIEW OF SYSTEMS: As per HPI. Other systems negative. On examination, the patient is comfortable, awake, not in any acute distress. Blood pressure 118/75, heart rate 104 per minute. The patient is afebrile. Examination of the heart S1 and S2. Examination of the lungs: Bilateral breath sounds are heard. Decreased breath sounds in bases. ABDOMEN: Soft, nontender. Examination of lower extremities shows currently no evidence of edema. Ulcer on the left third and fourth toes currently dressed. Labs show sodium 140, potassium 5.4. Troponin was 0.05. Hemoglobin 11.8 g/dL. ASSESSMENT: 1. End-stage renal disease on hemodialysis on a Monday, Monday, Monday schedule. We will arrange for hemodialysis today. 2. Peripheral vascular disease with pain in both lower extremities, currently maintained on IV heparin, being followed by cardiology. Patient has had an arteriogram done by cardiology with plans for further intervention previously prior to admission. 3. Severe pulmonary hypertension, maintained on ( ). 4. Chronic kidney disease bone mineral disorder, maintained on non-calcium binders. 5. Coronary artery disease with history of coronary artery bypass surgery. PLAN: Hemodialysis today. Goal UF of about 2 to 2.5 liters as tolerated. Await further recommendations from cardiology standpoint regarding intervention.
[2017-02-17] MEDS: EZETIMIBE 10 MG TAB PO SCH (19:05)
[2017-02-17] MEDS: CINACALCET 30 MG TAB PO SCH (19:05)
[2017-02-17] MEDS: ALLOPURINOL 100 MG TAB PO SCH (19:05)
[2017-02-17] MEDS: CLOPIDOGREL 75 MG TAB PO SCH (19:05)
[2017-02-17] MEDS: ASPIRIN 325 MG TAB PO SCH (19:05)
[2017-02-17] MEDS: METOPROLOL SUCCINATE (ER) 25 MG TAB.ER.24H PO SCH (19:05)
[2017-02-17] MEDS: SILDENAFIL 20 MG TAB PO SCH ×3 (19:06→21:18)
[2017-02-17 20:15] LABS: Anisocytosis Moderate; Basophils % (A) 1 %; CH 32.2; CHCM 29.8; Eosinophils # (A) 0.2 k/uL (0-0.7); Eosinophils % (A) 2 %; HCT 39.2 % (39.0-53.0); HDW 3.02; HGB 11.7 gm/dL (13.0-17.5); Hypochromasia Marked; Luc # (Auto) 0.14; Luc % (Auto) 2; Lymphocytes # (A) 0.4 k/uL (1.0-4.8); Lymphocytes % (A) 7 %; MCH 32.5 pg (25.0-35.0); MCHC 29.9 g/dL (31.0-37.0); MCV 108.8 fL (80.0-100.0); Macrocytosis Marked; Mean Platelet Volume 8.4; Monocytes # (A) 0.4 k/uL (0-1.0); Monocytes % (A) 7 %; Neutrophils # (A) 5.5 k/uL (1.3-7.7); Neutrophils % (A) 82 %; RDW 20.3 % (11.5-15.5); WBC 6.7 k/uL (3.8-10.6); WBC (Perox) 7.23
[2017-02-17] MEDS: HEPARIN SODIUM,PORCINE/D5W PMX 25,000 UNIT in DEXTROSE/WATER 1 500ML.BAG IV SCH (20:46)
[2017-02-17 21:08] LABS: Manual Review Performed; Ovalocytes Present
[2017-02-17 21:09] LABS: Polychromasia Present
[2017-02-17 21:10] LABS: Tear Drop Cells Present
[2017-02-18] MEDS: MORPHINE SULFATE 4 MG/ML SYRINGE IV PRN ×3 (04:59→15:59)
[2017-02-18 07:07] LABS: Anisocytosis Moderate; Basophils % (A) 1 %; CH 32.2; CHCM 29.8; Eosinophils # (A) 0.2 k/uL (0-0.7); Eosinophils % (A) 3 %; HCT 36.4 % (39.0-53.0); HDW 3.01; Hypochromasia Marked; Luc # (Auto) 0.18; Luc % (Auto) 3; Lymphocytes # (A) 0.6 k/uL (1.0-4.8); Lymphocytes % (A) 9 %; MCH 32.6 pg (25.0-35.0); MCHC 30.1 g/dL (31.0-37.0); MCV 108.3 fL (80.0-100.0); Macrocytosis Marked; Mean Platelet Volume 8.9; Monocytes # (A) 0.6 k/uL (0-1.0); Monocytes % (A) 9 %; Neutrophils # (A) 4.9 k/uL (1.3-7.7); Neutrophils % (A) 76 %; RBC 3.36 m/uL (4.30-5.90); WBC 6.4 k/uL (3.8-10.6); WBC (Perox) 6.72
[2017-02-18 07:09] LABS: Calcium 9.5 mg/dL (8.4-10.2); Phosphorous 6.6 mg/dL (2.5-4.5); Potassium 4.7 mmol/L (3.5-5.1); Total Protein 7.9 g/dL (6.3-8.2)
[2017-02-18] MEDS: SEVELAMER 800 MG TAB PO SCH ×3 (07:15→17:27)
--- NOTE | 2017-02-18 07:52 | CONS ---
DATE OF CONSULTATION: 02/17/2017 REASON FOR CONSULTATION: Left toe wound. HISTORY OF PRESENT ILLNESS: The patient is a 66-year-old male well known to service as the patient follows with me in the outpatient setting for a nonhealing wound to the lateral border of his left toe, which was thought to be ischemic for which the patient has been sent for a vascular evaluation. Patient was evaluated by Dr. Navarrete. The patient did have an angiogram to the lower extremities done on 01/31/17, which did show evidence of severe atherosclerotic disease with occluded femoral artery and significant disease below the knee area. Patient was scheduled to undergo intervention on the , however, ended up coming into the ER at [facility] yesterday with significant bilateral leg pain to the extent that patient started having chest pain with some shortness of breath. With this symptoms, the patient was evaluated by the ER physician. Patient has been admitted to the hospital. He did have some cultures obtained from his left third toe wound and I was asked to see the patient for further recommendation regarding the left foot third toe wound. REVIEW OF SYSTEMS: CONSTITUTIONAL: Positive for weakness. Denies any fever or rigors. EYES: No complaint. ENT: No complaint. RESPIRATORY: No complaint. CARDIOVASCULAR: As per HPI. GENITOURINARY: No complaint. GASTROINTESTINAL: No complaint. MUSCULOSKELETAL: As per HPI. INTEGUMENTARY: As per HPI. PSYCHOLOGIC: No complaint. ENDOCRINE: No complaint. NEUROLOGIC: No complaint. PAST MEDICAL HISTORY: Significant for coronary artery disease, heart failure, hypertension, hyperlipidemia, osteoarthritis, vascular insufficiency, sleep apnea, endstage disease on hemodialysis. PAST SURGICAL HISTORY: Appendectomy, coronary artery bypass grafting, heart catheterization, stent placement, left arm area fistula for dialysis, pacemaker placement. SOCIAL HISTORY: Remote history of smoking, smoked from 19. Denies any drinking or drug use. FAMILY HISTORY: Mother with a history of breast cancer. Father history of renal disease, at age 47 from renal failure. Mother with history of coronary artery disease. ALLERGIES: PENICILLIN, STATINS, LORAZEPAM, CIPROFLOXACIN. Medications include the patient currently on Tylenol, Zyloprim, aspirin, Pulmicort, Plavix, nitroglycerin, Zetia, heparin, metoprolol, Nitrostat, ReVital. On examination, blood pressure is 118/75 with a pulse of 104, temperature 97.9. He is 95% on 4 liters nasal cannula. General description is an elderly male, lying in bed in no distress. No tachypnea or HEENT examination shows no pallor or scleral icterus. Oral mucous membranes dry. NECK: Trachea central. There is no thyromegaly. LUNGS: Unlabored breathing. Clear to auscultation anteriorly. No wheeze or crackle. HEART: S1, S2. Regular rate and rhythm. No tenderness. EXTREMITIES: No complaint. INTEGUMENTARY: No edema of feet. Examination of the left foot third toe lateral border with wound and no significant slough tissue and minimal drainage was noticed. No significant swelling, redness or any foul smelling drainage. NEUROLOGICAL: The patient is awake, alert, oriented x3. Mood and affect normal. LABS: Hemoglobin is 11.8, white count 7.7, BUN of 48, creatinine is 8.79, potassium is 5.4. slightly elevated. Cultures from the toe shows gram-negative. DIAGNOSTIC IMPRESSION AND PLAN: Patient with left third toe nonhealing wound more likely secondary to his underlying peripheral arterial disease. Suspicion remains to be very low for any secondary infection as the patient's toe currently does not look swollen or red or any foul smelling drainage. Would recommend local wound care. The patient needs intervention to his lower extremity, which was discussed with Dr. Navarrete for possible stenting femoral vein tomorrow or Monday. PLAN: 1. Will apply Aquacel Silver dressing to the left third toe and hold off on any antibiotic therapy at this point as clinical suspicion low for any secondary cellulitis. 2. Will follow up on his clinical condition to further adjust the medication if needed. Thank you for this consultation. Will follow this patient along with you. VAISHALI
[2017-02-18] MEDS: CLOPIDOGREL 75 MG TAB PO SCH (08:09)
[2017-02-18] MEDS: EZETIMIBE 10 MG TAB PO SCH (08:09)
[2017-02-18] MEDS: METOPROLOL SUCCINATE (ER) 25 MG TAB.ER.24H PO SCH (08:09)
[2017-02-18] MEDS: ASPIRIN 325 MG TAB PO SCH (08:10)
[2017-02-18] MEDS: ALLOPURINOL 100 MG TAB PO SCH (08:10)
[2017-02-18] MEDS: SILDENAFIL 20 MG TAB PO SCH ×2 (08:10→15:59)
[2017-02-18 08:58] LABS: Polychromasia Present
--- NOTE | 2017-02-18 10:07 | P.PN ---
Subjective No events overnight. Patient said that his pain is not very well controlled. Objective - Vital Signs Vital signs: Vital Signs Temp 98.8 F 02/18/17 08:00 Pulse 108 H 02/18/17 08:00 Resp 16 02/18/17 08:00 BP 101/59 02/18/17 08:00 Pulse Ox 98 02/18/17 08:00 Intake & Output 02/17/17 02/18/17 02/18/17 18:59 06:59 18:59 Intake Total 363.332 823.621 243.187 Balance 363.332 823.621 243.187 Weight 76.8 kg Intake: IV 140 Heparin Sodium,Porcine/ 140 D5w Pmx 25,000 unit In Dextrose/Water 1 500ml. bag @ 12 UNITS/KG/HR 17. 52 mls/hr IV .Q24H RU Rx #:[id number] Intake, IV Titration 243.332 57.621 243.187 Amount Heparin Sodium,Porcine/ 243.332 57.621 243.187 D5w Pmx 25,000 unit In Dextrose/Water 1 500ml. bag @ 12 UNITS/KG/HR 17. 52 mls/hr IV .Q24H RU Rx #:[id number] Oral 120 626 Other: # Voids 0 - Exam General: The patient is awake and alert, in no distress Eye: there is normal conjunctiva bilaterally. Neck: The neck is supple, there is no JVD. Cardiovascular: Normal S1-S2, no S3-S4, no murmurs. Respiratory: Lungs clear to auscultation bilaterally Gastrointestinal: Abdomen is soft, nontender Musculoskeletal: There is no pedal edema. Please refer to nursing staff documentation for description of necrotic toes Neurological:. Speech is normal. Skin: Skin is warm and dry - Labs CBC & Chem 7: 02/18/17 06:35 02/18/17 06:35 Labs: Abnormal Lab Results - Last 24 Hours (Table) 02/17/17 02/17/17 02/17/17 Range/Units 11:42 20:04 21:37 RBC 3.60 L (4.30-5.90) m/uL Hgb 11.7 L (13.0-17.5) gm/dL Hct (39.0-53.0) % MCV 108.8 H (80.0-100.0) fL MCHC 29.9 L (31.0-37.0) g/dL RDW 20.3 H (11.5-15.5) % Lymphocytes # 0.4 L (1.0-4.8) k/uL APTT 38.9 H 35.9 H (22.0-30.0) sec Chloride (98-107) mmol/L Carbon Dioxide (22-30) mmol/L BUN (9-20) mg/dL Creatinine (0.66-1.25) mg/dL Phosphorus (2.5-4.5) mg/dL ALT (21-72) U/L Alkaline Phosphatase (38-126) U/L 02/18/17 02/18/17 02/18/17 Range/Units 06:35 06:35 06:35 RBC 3.36 L (4.30-5.90) m/uL Hgb 11.0 L (13.0-17.5) gm/dL Hct 36.4 L (39.0-53.0) % MCV 108.3 H (80.0-100.0) fL MCHC 30.1 L (31.0-37.0) g/dL RDW 20.0 H (11.5-15.5) % Lymphocytes # 0.6 L (1.0-4.8) k/uL APTT 91.8 H (22.0-30.0) sec Chloride 95 L (98-107) mmol/L Carbon Dioxide 31 H (22-30) mmol/L BUN 35 H (9-20) mg/dL Creatinine 6.82 H* (0.66-1.25) mg/dL Phosphorus 6.6 H (2.5-4.5) mg/dL ALT 19 L (21-72) U/L Alkaline Phosphatase 133 H (38-126) U/L Microbiology - Last 24 Hours (Table) 02/16/17 15:00 Gram Stain - Preliminary Toe - Left Third Wound Culture - Preliminary Gram Neg Bacilli Assessment and Plan Plan: 1. Severe Peripheral arterial disease with ulcers on toes 3 and 4 on left foot. Patient had angiogram in 01/31/2017 showing occluded femoral artery bilaterally and no blood flow from the knee down bilaterally. Patient be placed on IV heparin. Infectious disease has also been consulted for wound care on those toes. Wound culture growing gram-negative bacilli. Awaiting further recommendation by cardiology 2. End-stage renal disease: Dialysis Monday. Nephrology has been consulted 3. History of coronary artery disease with previous cardiac stents and coronary bypass grafting 5 vessels in 2013 4. History of severe pulmonary hypertension on Revatio 5. Hyperphosphatemia continue home medication. Repeat phosphorus level in a.m. 6. Episodes of chest pain: Atypical. Evaluated by cardiology. Likely mildly elevated troponins are related to his renal failure 7. Essential hypertension GI prophylaxis Pepcid and DVT prophylaxis IV heparin
[2017-02-18] MEDS: diphenhydrAMINE 25 MG CAP PO PRN (11:59)
[2017-02-18] MEDS: HEPARIN SODIUM,PORCINE/D5W PMX 25,000 UNIT in DEXTROSE/WATER 1 500ML.BAG IV SCH ×2 (14:56→18:30)
[2017-02-19] MEDS ORDERED: MORPHINE SULFATE 4 MG/ML SYRINGE ONE (00:52)
[2017-02-19] MEDS: SILDENAFIL 20 MG TAB PO SCH ×4 (02:57→21:48)
--- NOTE | 2017-02-19 06:53 | PN ---
DATE OF SERVICE: 02/18/2017 Reason for follow up is left foot third toe wound and question of infection. INTERVAL HISTORY: The patient is afebrile, has been breathing comfortably. Complaining of more pain, especially after placing the Aquacel silver dressing on it. Patient denies significant chest pain or shortness. No cough. No abdominal pain or any diarrhea. On examination, blood pressure 101/59 with a pulse 108, temperature 98.8. He is 98% on 4 liters nasal cannula. General description is an elderly male lying in bed in no distress. RESPIRATORY SYSTEM: Unlabored breathing. Clear to auscultation anteriorly. HEART: S1, S2. Regular rate and rhythm. ABDOMEN: Soft, no tenderness. Left third toe is currently dressed with no obvious drainage on the dressing. LABS: Hemoglobin is 11, white count 6.4 with a BUN of 35, creatinine 6.82. Wound culture showing a gram-negative bacilli. DIAGNOSTIC IMPRESSION AND PLAN: Patient with nonhealing wound to the left third toe which is ischemic from his underlying peripheral arterial disease. The patient did have an angiogram with significant bilateral lower extremity peripheral arterial disease. At this time we are waiting for the vascular procedure by Dr. Navarrete. Wound culture showing gram-negative, could be more just a colonizer. Underlying infection not entirely excluded. Patient has history of PENICILLIN ALLERGY with rash. No history of anaphylaxis. Patient is started on Fortaz while awaiting for the culture to finalize. Daughter was present at beside. Her questions and concerns were answered. VAISHALI
[2017-02-19 07:00] LABS: Anisocytosis Slight; Basophils % (A) 1 %; CH 32.2; CHCM 30.1; Eosinophils # (A) 0.2 k/uL (0-0.7); Eosinophils % (A) 2 %; HCT 36.3 % (39.0-53.0); HDW 3.04; Hypochromasia Marked; Luc % (Auto) 3; Lymphocytes # (A) 0.7 k/uL (1.0-4.8); Lymphocytes % (A) 10 %; MCH 32.7 pg (25.0-35.0); MCHC 30.4 g/dL (31.0-37.0); MCV 107.6 fL (80.0-100.0); Macrocytosis Marked; Monocytes # (A) 0.6 k/uL (0-1.0); Monocytes % (A) 9 %; Neutrophils % (A) 75 %; RBC 3.37 m/uL (4.30-5.90); RDW 19.9 % (11.5-15.5); WBC 6.6 k/uL (3.8-10.6); WBC (Perox) 6.36
[2017-02-19 07:21] LABS: Calcium 9.6 mg/dL (8.4-10.2); Phosphorous 7.8 mg/dL (2.5-4.5); Potassium 5.5 mmol/L (3.5-5.1); Total Bilirubin 0.9 mg/dL (0.2-1.3); Total Protein 7.5 g/dL (6.3-8.2)
[2017-02-19] MEDS: SEVELAMER 800 MG TAB PO SCH ×3 (07:55→17:26)
[2017-02-19] MEDS: MORPHINE SULFATE 4 MG/ML SYRINGE IV PRN ×4 (08:00→21:47)
--- NOTE | 2017-02-19 09:03 | PN ---
Patient is seen for follow-up for end-stage renal disease. He had dialysis yesterday with UF of about 2 liters. Patient states the pain in his lower extremities is slightly improved. He is maintained on pain medications. Patient's wound culture grew Pseudomonas. He is maintained on antibiotics in the form of ceftazadime. This is the wound on his left third and fourth toes. On examination, the patient is currently comfortable, awake, alert, oriented x3. He is not in any acute distress. Blood pressure is 108/69, heart rate 108 per minute. He is afebrile. Examination of the heart S1 and S2. Examination of the lungs: Bilateral breath sounds are heard. Abdomen is soft, nontender. Examination of lower extremities shows no evidence of edema. Left third and fourth toes are currently dressed. Labs show sodium 143, potassium 4.7. Hemoglobin 11.0. Phosphorus was 6.6. ASSESSMENT: 1. End-stage renal disease on hemodialysis on a Monday, Monday, Monday schedule. Will arrange for hemodialysis on Monday. 2. Chronic kidney disease metabolic bone disease maintained on Renvela. Phosphorus is high. Patient is encouraged to make sure that he takes his phosphate binders right with his meals. 3. Peripheral vascular disease with pain in the lower extremities and wounds on the left third and fourth toes. Awaiting further input from cardiology, possibly intervention is planned for Monday. 4. Wound left third and fourth toes with wound culture growing pseudomonas maintained on ceftazidime. 5. Secondary hyperparathyroidism, currently on Sensipar. PLAN: Next hemodialysis on Monday.
[2017-02-19] MEDS: METOPROLOL SUCCINATE (ER) 25 MG TAB.ER.24H PO SCH (09:30)
[2017-02-19] MEDS: ASPIRIN 325 MG TAB PO SCH (09:30)
[2017-02-19] MEDS: CLOPIDOGREL 75 MG TAB PO SCH (09:30)
[2017-02-19] MEDS: ALLOPURINOL 100 MG TAB PO SCH (09:30)
[2017-02-19] MEDS: EZETIMIBE 10 MG TAB PO SCH (09:30)
--- NOTE | 2017-02-19 13:59 | P.PN ---
Subjective No events overnight. Objective - Vital Signs Vital signs: Vital Signs Temp 99.1 F 02/19/17 12:00 Pulse 104 H 02/19/17 12:00 Resp 18 02/19/17 12:00 BP 120/75 02/19/17 12:00 Pulse Ox 94 L 02/19/17 12:00 Intake & Output 02/18/17 02/19/17 02/19/17 18:59 06:59 18:59 Intake Total 983.797 280 380 Output Total 40 Balance 983.797 240 380 Weight 77.3 kg Intake: IV 280 Heparin Sodium,Porcine/ 280 D5w Pmx 25,000 unit In Dextrose/Water 1 500ml. bag @ 12 UNITS/KG/HR 17. 52 mls/hr IV .Q24H RU Rx #:[id number] Intake, IV Titration 503.797 100 Amount Heparin Sodium,Porcine/ 503.797 D5w Pmx 25,000 unit In Dextrose/Water 1 500ml. bag @ 12 UNITS/KG/HR 17. 52 mls/hr IV .Q24H RU Rx #:[id number] cefTAZidime 2 gm In 100 Sodium Chloride 0.9% 100 ml @ 100 mls/hr IVPB DAILY RU Rx#:[id number] Oral 480 280 Output: Urine 40 Other: # Voids 1 1 - Exam General: The patient is awake and alert, in no distress Eye: there is normal conjunctiva bilaterally. Neck: The neck is supple, there is no JVD. Cardiovascular: Normal S1-S2, no S3-S4, no murmurs. Respiratory: Lungs clear to auscultation bilaterally Gastrointestinal: Abdomen is soft, nontender Musculoskeletal: There is no pedal edema. Please refer to nursing staff documentation for description of necrotic toes Neurological:. Speech is normal. Skin: Skin is warm and dry - Labs CBC & Chem 7: 02/19/17 05:19 02/19/17 05:19 Labs: Abnormal Lab Results - Last 24 Hours (Table) 02/18/17 02/19/17 02/19/17 Range/Units 15:12 00:36 05:19 RBC 3.37 L (4.30-5.90) m/uL Hgb 11.0 L (13.0-17.5) gm/dL Hct 36.3 L (39.0-53.0) % MCV 107.6 H (80.0-100.0) fL MCHC 30.4 L (31.0-37.0) g/dL RDW 19.9 H (11.5-15.5) % Lymphocytes # 0.7 L (1.0-4.8) k/uL APTT 41.8 H 52.6 H (22.0-30.0) sec Potassium (3.5-5.1) mmol/L Chloride (98-107) mmol/L BUN (9-20) mg/dL Creatinine (0.66-1.25) mg/dL Phosphorus (2.5-4.5) mg/dL 02/19/17 Range/Units 05:19 RBC (4.30-5.90) m/uL Hgb (13.0-17.5) gm/dL Hct (39.0-53.0) % MCV (80.0-100.0) fL MCHC (31.0-37.0) g/dL RDW (11.5-15.5) % Lymphocytes # (1.0-4.8) k/uL APTT (22.0-30.0) sec Potassium 5.5 H (3.5-5.1) mmol/L Chloride 93 L (98-107) mmol/L BUN 52 H (9-20) mg/dL Creatinine 8.67 H* (0.66-1.25) mg/dL Phosphorus 7.8 H (2.5-4.5) mg/dL Microbiology - Last 24 Hours (Table) 02/16/17 15:00 Gram Stain - Final Toe - Left Third Wound Culture - Final Pseudomonas aeruginosa Assessment and Plan Plan: 1. Severe Peripheral arterial disease with ulcers on toes 3 and 4 on left foot. Patient had angiogram in 01/31/2017 showing occluded femoral artery bilaterally and no blood flow from the knee down bilaterally. Patient be placed on IV heparin. Infectious disease has also been consulted for wound care on those toes. Wound culture growing gram-negative bacilli. Awaiting further recommendation by cardiology. Possible intervention on Monday 2. End-stage renal disease: Dialysis Monday. Nephrology has been consulted 3. History of coronary artery disease with previous cardiac stents and coronary bypass grafting 5 vessels in 2013 4. History of severe pulmonary hypertension on Revatio 5. Hyperphosphatemia continue home medication. Repeat phosphorus level in a.m. 6. Episodes of chest pain: Atypical. Evaluated by cardiology. Likely mildly elevated troponins are related to his renal failure 7. Essential hypertension GI prophylaxis Pepcid and DVT prophylaxis IV heparin
--- NOTE | 2017-02-19 14:26 | PN ---
Patient is seen for follow-up for end-stage renal disease. He states he had significant pain in his legs overnight. He is currently comfortable. The intervention on the lower extremity is scheduled for Monday according to the patient. On examination, blood pressure is 120/75, heart rate 104 per minute. The patient is afebrile. Examination of the heart S1 and S2. Examination of the lungs: Bilateral breath sounds are heard. ABDOMEN: Soft, nontender. Examination of lower extremities shows no significant edema. Chronic skin changes are noted. Toe on his left foot is currently dressed. Labs show potassium of 5.5 from today. Hemoglobin was 11.0. ASSESSMENT: 1. End-stage renal disease on hemodialysis on a Monday, Monday, Monday schedule. Will arrange for hemodialysis in a.m. 2. Mild hyperkalemia. Expect improvement with dialysis tomorrow. 3. Peripheral vascular disease with pain in the bilateral feet and ischemic ulcer in the left foot, maintained on IV heparin; scheduled for intervention per cardiology. 4. Chronic kidney disease bone mineral disorder, maintained on Renvela. 5. Severe pulmonary primary hypertension, maintained on Revatio. PLAN: Hemodialysis in a.m. with goal UF of about 3 liters as tolerated.
[2017-02-19] MEDS: diphenhydrAMINE 25 MG CAP PO PRN (17:23)
[2017-02-20] MEDS: MORPHINE SULFATE 4 MG/ML SYRINGE IV PRN ×3 (07:01→16:20)
[2017-02-20] MEDS: SEVELAMER 800 MG TAB PO SCH ×4 (07:02→17:11)
[2017-02-20] MEDS: SILDENAFIL 20 MG TAB PO SCH ×4 (07:06→20:36)
[2017-02-20 07:10] LABS: Anisocytosis Slight; Basophils % (A) 1 %; CH 32.5; CHCM 30.5; Eosinophils # (A) 0.2 k/uL (0-0.7); Eosinophils % (A) 3 %; HCT 36.2 % (39.0-53.0); HDW 3.08; Hypochromasia Marked; Luc # (Auto) 0.24; Luc % (Auto) 3; Lymphocytes # (A) 0.7 k/uL (1.0-4.8); Lymphocytes % (A) 10 %; MCH 32.6 pg (25.0-35.0); MCHC 30.5 g/dL (31.0-37.0); MCV 106.9 fL (80.0-100.0); Macrocytosis Marked; Mean Platelet Volume 8.9; Monocytes # (A) 0.7 k/uL (0-1.0); Monocytes % (A) 10 %; Neutrophils # (A) 5.2 k/uL (1.3-7.7); Neutrophils % (A) 74 %; RBC 3.39 m/uL (4.30-5.90); RDW 19.8 % (11.5-15.5); WBC 7.1 k/uL (3.8-10.6); WBC (Perox) 6.96
[2017-02-20 07:45] LABS: Calcium 9.6 mg/dL (8.4-10.2); Potassium 5.7 mmol/L (3.5-5.1); Total Bilirubin 0.9 mg/dL (0.2-1.3); Total Protein 7.4 g/dL (6.3-8.2)
[2017-02-20 08:00] LABS: Phosphorous 9.9 mg/dL (2.5-4.5)
[2017-02-20] MEDS: HEPARIN SODIUM,PORCINE/D5W PMX 25,000 UNIT in DEXTROSE/WATER 1 500ML.BAG IV SCH (08:12)
[2017-02-20] MEDS: ALLOPURINOL 100 MG TAB PO SCH (08:14)
[2017-02-20] MEDS: ASPIRIN 325 MG TAB PO SCH (08:14)
[2017-02-20] MEDS: CLOPIDOGREL 75 MG TAB PO SCH (08:15)
[2017-02-20] MEDS: EZETIMIBE 10 MG TAB PO SCH (08:15)
[2017-02-20] MEDS: CINACALCET 30 MG TAB PO SCH (08:15)
[2017-02-20] MEDS: METOPROLOL SUCCINATE (ER) 25 MG TAB.ER.24H PO SCH (08:15)
[2017-02-20 08:31] LABS: Manual Review Performed
--- NOTE | 2017-02-20 10:23 | PN ---
DATE OF SERVICE: 02/19/2017 Reason for followup is left third toe wound and a question of secondary infection with pseudomonas. INTERVAL HISTORY: The patient is breathing comfortably. The patient denies having any chest pain or shortness of breath or cough. No abdominal pain or any worsening pain in the foot area. On examination, blood pressure is 136/81 with pulse 97, temperature 98.3. He is 98% on 4 L nasal cannula. General description is an elderly male, lying in bed in no distress. RESPIRATORY SYSTEM: Unlabored breathing. Clear to auscultation anteriorly. HEART: S1, S2. Regular rate and rhythm. ABDOMEN: Soft. No tenderness. Left foot third toe is currently dressing, no obvious drainage on the dressing. LABS: Hemoglobin is 11, white count 6.6 with BUN of 52, creatinine 8.67. Wound culture with Pseudomonas aeruginosa that is sensitive pathogen. DIAGNOSTIC IMPRESSION AND PLAN: Patient with nonhealing left third toe wound more likely ischemic awaiting an intervention possibly tomorrow. Continue local wound care with Aquacel Silver. He is currently on Fortaz for the pseudomonas though low clinical suspicious for infection though it could not be entirely excluded. The patient did have history of allergy to CIPROFLOXACIN with the patient telling me it was mostly nausea after a few days. Chart is saying itching. This will be confirmed. If he can take the oral Cipro may be given a short course of oral Cipro on discharge. Continue Fortaz and local wound care as ordered. Continue supportive care. MTDD
--- NOTE | 2017-02-20 11:14 | P.PN ---
Subjective This is a 66-year-old male, a patient of . He has a known past medical history of end-stage renal disease, PAD, hypertension, coronary artery disease with previous stent and CABG 5 vessels, pacemaker, severe pulmonary hypertension and congestive heart failure. Patient presents to the emergency room with complaints of severe bilateral leg pain. He states that when the legs start hurting so severe he does start to have chest pain. Patient no has known peripheral arterial disease has been seen by Dr. Vivar and had an angiogram on 01/31/2017 which showed severe peripheral arterial disease with occluded femoral artery bilaterally and no blood flow from the knee down bilaterally. Patient also has ulcers on the toes of the left foot. Infectious disease and cardiogenic following. Patient is maintained on IV heparin. Pain is tolerable. Chest pain has resolved. Denies any nausea or vomiting. He does reports small bowel movement yesterday. Denies any difficulty urinating. 02/20/2017 patient lying in bed comfortably. He is scheduled for procedure for his peripheral arterial disease today. He is also scheduled for hemodialysis. Reports not having bowel movements over the last couple a days. Denies any chest pain or shortness of breath. Denies any nausea or vomiting. Denies any difficulty urinating. Objective - Vital Signs Vital signs: Vital Signs Temp 96.9 F L 02/20/17 08:00 Pulse 98 02/20/17 08:00 Resp 18 02/20/17 08:00 BP 146/70 02/20/17 08:00 Pulse Ox 93 L 02/20/17 08:00 Intake & Output 02/19/17 02/20/17 02/20/17 18:59 06:59 18:59 Intake Total 1240 1176 Output Total 0 Balance 1240 1176 Weight 76.8 kg Intake: IV 1076 0.9 320 Heparin Sodium,Porcine/ 756 D5w Pmx 25,000 unit In Dextrose/Water 1 500ml. bag @ 12 UNITS/KG/HR 17. 52 mls/hr IV .Q24H RU Rx #:[id number] Intake, IV Titration 600 100 Amount Heparin Sodium,Porcine/ 500 D5w Pmx 25,000 unit In Dextrose/Water 1 500ml. bag @ 12 UNITS/KG/HR 17. 52 mls/hr IV .Q24H RU Rx #:[id number] cefTAZidime 2 gm In 100 100 Sodium Chloride 0.9% 100 ml @ 100 mls/hr IVPB DAILY [facility] Rx#:[id number] Oral 640 Output: Urine 0 Other: # Voids 0 - Exam Head normocephalic Neck supple Lungs clear to auscultation bilaterally no wheezing or crackles Heart regular rate and rhythm S1-S2, no rub or gallop positive murmur Abdomen is soft nontender nondistended positive bowel sounds Extremities no edema. Both legs are tender with palpation. Left foot ulcers on toes 3 and 4 draining pus. Ulcers between the toes. Neuro alert and orientated to 3 - Labs CBC & Chem 7: 02/20/17 06:40 02/20/17 06:40 Labs: Abnormal Lab Results - Last 24 Hours (Table) 02/20/17 02/20/17 02/20/17 Range/Units 06:40 06:40 06:40 RBC 3.39 L (4.30-5.90) m/uL Hgb 11.0 L (13.0-17.5) gm/dL Hct 36.2 L (39.0-53.0) % MCV 106.9 H (80.0-100.0) fL MCHC 30.5 L (31.0-37.0) g/dL RDW 19.8 H (11.5-15.5) % Plt Count 138 L (150-450) k/uL Lymphocytes # 0.7 L (1.0-4.8) k/uL APTT 53.5 H (22.0-30.0) sec Potassium 5.7 H (3.5-5.1) mmol/L Chloride 96 L (98-107) mmol/L BUN 65 H (9-20) mg/dL Creatinine 10.45 H* (0.66-1.25) mg/dL Phosphorus 9.9 H* (2.5-4.5) mg/dL Assessment and Plan Plan: 1. Severe Peripheral arterial disease with ulcers on toes 3 and 4 on left foot. Patient had angiogram in 01/31/2017 showing occluded femoral artery bilaterally and no blood flow from the knee down bilaterally. Patient be placed on IV heparin. Patient scheduled for vascular procedure today. Wound culture from toes growing pseudomonas aeruginosa. Infectious disease following. He is currently on full 4 times 2. End-stage renal disease: Dialysis Monday. Nephrology following 3. History of coronary artery disease with previous cardiac stents and coronary bypass grafting 5 vessels in 2013 4. History of severe pulmonary hypertension on Revatio 5. Hyperphosphatemia: Continue the renvela. Also should be corrected with dialysis 6. Episodes of chest pain: Atypical. Evaluated by cardiology. Likely mildly elevated troponins are related to his renal failure 7. Essential hypertension 8. Constipation: Add Colace 100 mg twice a day 9. Hyperkalemia to be corrected with hemodialysis GI prophylaxis Pepcid and DVT prophylaxis IV heparin I performed an examination of the patient and discussed their management with the physician Pipeline Executive. I have reviewed the Physician Pipeline Executive's notes and agree with the documented findings and plan of care
--- NOTE | 2017-02-20 12:43 | PN ---
The patient is seen for follow-up for end-stage renal disease. We are awaiting cardiology input regarding decision about intervention. He was admitted to the hospital with severe bilateral lower extremity pain. He does have significant peripheral vascular disease noted on angiogram done recently by Dr. Navarrete. He is scheduled for dialysis today, which we will try to schedule postprocedure. On examination, blood pressure is 133/68, heart rate 93 per minute. The patient is afebrile. Examination of the heart S1 and S2. Examination of the lungs, bilateral breath sounds are heard. Abdomen is soft, nontender. Examination of lower extremities shows no evidence of edema. Toes on the left foot are currently dressed. Labs show sodium 141, potassium 5.7. Hemoglobin 11.0. ASSESSMENT: 1. End-stage renal disease on hemodialysis on Monday, Monday, Monday schedule. Will arrange for hemodialysis today. 2. Chronic kidney disease bone mineral disorder with serum phosphorous significantly elevated at 9.9 mg/dL. Patient is maintained on Renvela 2 tablets t.i.d. I will increase it to 4 tablets t.i.d. with meals. Continue with the Sensipar for the hyperparathyroidism. 3. Severe peripheral vascular disease. Awaiting cardiology input regarding any further intervention on his lower extremities. Currently patient is maintained on heparin. His pain is controlled with pain medications. 4. Severe pulmonary hypertension, maintained on Revatio. 5. Hyperkalemia. Expect improvement with hemodialysis. PLAN: Hemodialysis today. Increase Renvela.
--- NOTE | 2017-02-20 14:46 | P.PN ---
Subjective Principal diagnosis: PAD This is a pleasant 66-year-old -[place] gentleman who follows with Dr. Vivar in the office. He has known history of end-stage renal disease on hemodialysis, coronary artery disease with prior bypass surgery, prior stent placement, prior pacemaker, hypertension, hyperlipidemia, peripheral vascular disease, who was recently in the hospital in January of this year at which time he underwent an abdominal aortogram with bilateral lower extremity runoff by Dr. Vivar. Patient was found to have a heavily calcified peripheral arterial system with severe aortoiliac disease involving the external iliac arteries bilaterally. Severe femoral popliteal disease with severe disease involving the common femoral arteries bilaterally, severe disease affecting the profunda bilaterally and occluded bilateral superficial femoral artery. He presents to the hospital on this occasion with symptoms of severe pain in his left foot. Patient will be scheduled for a REFRACTORY REPAIRER of his bilateral iliacs on Monday. Objective - Vital Signs Vital signs: Vital Signs Temp 96.9 F L 02/20/17 08:00 Pulse 93 02/20/17 11:54 Resp 18 02/20/17 11:54 BP 133/68 02/20/17 11:53 Pulse Ox 98 02/20/17 11:53 Intake & Output 02/19/17 02/20/17 02/20/17 18:59 06:59 18:59 Intake Total 340 Balance 340 Intake: IV 240 0.9 240 Intake, IV Titration 100 Amount cefTAZidime 2 gm In 100 Sodium Chloride 0.9% 100 ml @ 100 mls/hr IVPB DAILY [facility] Rx#:[id number] - Exam PHYSICAL EXAMINATION: HEENT: Head is atraumatic, normocephalic. Pupils equal, round. Neck is supple. There is no elevated jugular venous pressure. HEART EXAMINATION: Heart S1 and S2 systolic ejection murmur is heard. CHEST EXAMINATION: Lungs are clear to auscultation and precussion. No chest wall tenderness is noted on palpation or with deep breathing. ABDOMEN: Soft, nontender. Bowel sounds are heard. No organomegaly noted. EXTREMITIES:[ Right and left foot cool to the touch. NEUROLOGIC patient is awake, alert and oriented -3. - Labs CBC & Chem 7: 02/20/17 06:40 02/20/17 06:40 Assessment and Plan Plan: Assessment and plan #1 symptoms of severe left foot pain in a patient with known peripheral vascular disease status post abdominal aortogram and bilateral lower extremity runoff in January, which revealed heavily calcified peripheral arterial system with severe aortoiliac disease involving the external iliac arteries bilaterally , severe femoropopliteal disease, severe disease affecting the profunda bilaterally and occluded bilateral superficial femoral artery. #2 chest pain, atypical in nature. Troponins 0.05, 0.05, 0.05, EKG shows a sensed V paced rhythm. Troponin abnormality likely secondary to abnormal renal function. Myocardial infarction ruled out. #3 end-stage renal disease on hemodialysis #4 hypertension #5 hyperlipidemia #6 known history of coronary artery disease with prior bypass surgery and stent placements Plan At this time we're to continue the patient's IV heparin, continue aspirin as well as his other home medications. Patient is scheduled to undergo REFRACTORY REPAIRER of bilateral iliacs on Monday by Dr. Vivar. DNP note has been reviewed, I agree with a documented findings and plan of care. Patient was seen and examined.
[2017-02-20] MEDS: diphenhydrAMINE 25 MG CAP PO PRN (20:36)
[2017-02-21] MEDS: MORPHINE SULFATE 4 MG/ML SYRINGE IV PRN ×4 (00:31→20:51)
[2017-02-21] MEDS: DOCUSATE 100 MG CAP PO SCH ×3 (00:31→20:29)
[2017-02-21] MEDS: HEPARIN SODIUM,PORCINE/D5W PMX 25,000 UNIT in DEXTROSE/WATER 1 500ML.BAG IV SCH ×2 (02:01→17:08)
[2017-02-21] MEDS: SEVELAMER 800 MG TAB PO SCH ×3 (06:51→17:07)
[2017-02-21 07:58] LABS: Calcium 9.5 mg/dL (8.4-10.2); Potassium 5.5 mmol/L (3.5-5.1); Total Protein 7.4 g/dL (6.3-8.2)
[2017-02-21 08:25] LABS: Anisocytosis Slight; Basophils # (A) 0.1 k/uL (0-0.2); Basophils % (A) 1 %; CH 32.2; CHCM 30.3; Eosinophils # (A) 0.2 k/uL (0-0.7); Eosinophils % (A) 2 %; HCT 34.5 % (39.0-53.0); HDW 3.16; HGB 10.7 gm/dL (13.0-17.5); Hypochromasia Marked; Luc # (Auto) 0.23; Luc % (Auto) 3; Lymphocytes # (A) 0.6 k/uL (1.0-4.8); Lymphocytes % (A) 8 %; MCH 32.9 pg (25.0-35.0); MCHC 30.9 g/dL (31.0-37.0); MCV 106.7 fL (80.0-100.0); Macrocytosis Marked; Mean Platelet Volume 9.8; Monocytes # (A) 0.7 k/uL (0-1.0); Monocytes % (A) 10 %; Neutrophils # (A) 5.3 k/uL (1.3-7.7); Neutrophils % (A) 75 %; RBC 3.24 m/uL (4.30-5.90); RDW 19.6 % (11.5-15.5); WBC 7.1 k/uL (3.8-10.6); WBC (Perox) 6.96
[2017-02-21] MEDS: ALLOPURINOL 100 MG TAB PO SCH (08:28)
[2017-02-21] MEDS: METOPROLOL SUCCINATE (ER) 25 MG TAB.ER.24H PO SCH (08:28)
[2017-02-21] MEDS: CLOPIDOGREL 75 MG TAB PO SCH (08:28)
[2017-02-21] MEDS: ASPIRIN 325 MG TAB PO SCH (08:28)
[2017-02-21] MEDS: CINACALCET 30 MG TAB PO SCH (08:28)
[2017-02-21] MEDS: SILDENAFIL 20 MG TAB PO SCH ×3 (08:29→20:29)
[2017-02-21] MEDS: EZETIMIBE 10 MG TAB PO SCH (08:29)
--- NOTE | 2017-02-21 09:29 | P.PN ---
Subjective Patient is seen in follow-up for end-stage renal disease. He is maintained on hemodialysis on a Monday schedule via left upper extremity AV fistula. Patient has severe peripheral vascular disease and is scheduled for intervention tomorrow. He underwent hemodialysis yesterday and tolerated it well. Currently resting in bed. Does feel somewhat dyspneic but denies chest pain. Hemodynamically stable. Does admit to pain in his toes. Vital signs are stable. General: The patient appeared well nourished and normally developed. HEENT: Head exam is unremarkable. Neck is without jugular venous distension. LUNGS: Lungs are clear to auscultation and percussion. Breath sounds decreased. HEART: Rate and Rhythm are regular. First and second heart sounds normal. No murmurs, rubs or gallops. ABDOMEN: Abdominal exam reveals normal bowel sounds. Non-tender and non- distended. No evidence of peritonitis. EXTREMITITES: No clubbing, cyanosis, or edema. Objective - Vital Signs Vital signs: Vital Signs Temp 97.0 F L 02/21/17 08:00 Pulse 97 02/21/17 08:00 Resp 18 02/21/17 08:00 BP 108/47 02/21/17 08:00 Pulse Ox 93 L 02/21/17 08:00 Intake & Output 02/20/17 02/21/17 02/21/17 18:59 06:59 18:59 Intake Total 340 857.05 180 Output Total 0 Balance 340 857.05 180 Weight 75.4 kg Intake: IV 240 376 0.9 240 160 Heparin Sodium,Porcine/ 216 D5w Pmx 25,000 unit In Dextrose/Water 1 500ml. bag @ 12 UNITS/KG/HR 17. 52 mls/hr IV .Q24H [facility] Rx #:[id number] Intake, IV Titration 100 481.05 Amount Heparin Sodium,Porcine/ 481.05 D5w Pmx 25,000 unit In Dextrose/Water 1 500ml. bag @ 12 UNITS/KG/HR 17. 52 mls/hr IV .Q24H [facility] Rx #:[id number] cefTAZidime 2 gm In 100 Sodium Chloride 0.9% 100 ml @ 100 mls/hr IVPB DAILY RU Rx#:[id number] Oral 0 180 Output: Urine 0 - Labs CBC & Chem 7: 02/21/17 07:00 02/21/17 07:00 Labs: Abnormal Lab Results - Last 24 Hours (Table) 02/21/17 02/21/17 02/21/17 Range/Units 07:00 07:00 07:00 RBC 3.24 L (4.30-5.90) m/uL Hgb 10.7 L (13.0-17.5) gm/dL Hct 34.5 L (39.0-53.0) % MCV 106.7 H (80.0-100.0) fL MCHC 30.9 L (31.0-37.0) g/dL RDW 19.6 H (11.5-15.5) % APTT 47.4 H (22.0-30.0) sec Potassium 5.5 H (3.5-5.1) mmol/L Chloride 96 L (98-107) mmol/L BUN 42 H (9-20) mg/dL Creatinine 7.80 H* (0.66-1.25) mg/dL Assessment and Plan Plan: Assessment: #1. End-stage renal disease maintained on hemodialysis on a Monday schedule via left upper extremity AV fistula. #2. Severe pulmonary hypertension maintained on Revatio. #3. Severe peripheral vascular disease. #4. Chronic kidney disease mineral bone disease. #5. Hyperkalemia secondary to chronic kidney disease. Plan: Hemodialysis tomorrow with goal 2-3 L ultrafiltration. Cardiology following. Scheduled for peripheral intervention tomorrow. I will change his diet to a renal diet. Maintain Renvela with meals. Continue with Sensipar.
[2017-02-21 09:37] LABS: Manual Review Performed
[2017-02-21 09:38] LABS: Polychromasia Present
--- NOTE | 2017-02-21 11:02 | PN ---
DATE OF SERVICE: 02/20/2017 Reason for follow up is left third toe wound with secondary cellulitis. INTERVAL HISTORY: The patient is afebrile. Has been breathing comfortably. Waiting for his lower extremity intervention for his PAD. Patient denies significant chest pain, shortness of breath or cough. No abdominal pain or any diarrhea. On examination, blood pressure is 141/72 with a pulse of 83, temperature 97.6. He is 99% on 4 liters nasal cannula. General description is an elderly male lying in bed in no distress. RESPIRATORY SYSTEM: Unlabored breathing. Clear to auscultation anteriorly. HEART: S1, S2. Regular rate and rhythm. ABDOMEN: Soft, no tenderness. Left third toe with open wound. No significant swelling or redness. Very minimal drainage. LABS: Hemoglobin is 11, white count 7.1 with a BUN of 65, creatinine is 10.45. DIAGNOSTIC IMPRESSION AND PLAN: Patient with nonhealing wound to the left third toe more likely ischemic in a patient who has significant peripheral arterial disease. Awaiting intervention by Cardiology. He did have some culture positive with Pseudomonas, question of possible colonization versus mild infection. Patient treated with Fortaz. Family present at bedside. Their questions and concerns were answered.
--- NOTE | 2017-02-21 13:01 | P.PN ---
Subjective Patient is a 66-year-old male, a patient of . with known past medical history of end-stage renal disease, PAD, hypertension, coronary artery disease with previous stent and CABG 5 vessels, pacemaker, severe pulmonary hypertension and congestive heart failure. Patient presents to the emergency room with complaints of severe bilateral leg pain. He states that when the legs start hurting so severe he does start to have chest pain. Patient has known peripheral arterial disease has been seen by Dr. Vivar and had an angiogram on 01/31/2017 which showed severe peripheral arterial disease with occluded femoral artery bilaterally and no blood flow from the knee down bilaterally. Patient also has ulcers on the toes of the left foot. Infectious disease and cardiology following. Patient is maintained on IV heparin. On review of systems Pain is tolerable. Chest pain has resolved. There is no shortness of breath no cough Denies any nausea or vomiting. No abdominal pain He does reports small bowel movement yesterday. Denies any difficulty urinating. Objective - Vital Signs Vital signs: Vital Signs Temp 96.6 F L 02/21/17 11:33 Pulse 95 02/21/17 11:37 Resp 18 02/21/17 11:37 BP 95/64 02/21/17 11:33 Pulse Ox 93 L 02/21/17 11:33 Intake & Output 02/20/17 02/21/17 02/21/17 18:59 06:59 18:59 Intake Total 340 857.05 180 Output Total 0 Balance 340 857.05 180 Weight 75.4 kg Intake: IV 240 376 0.9 240 160 Heparin Sodium,Porcine/ 216 D5w Pmx 25,000 unit In Dextrose/Water 1 500ml. bag @ 12 UNITS/KG/HR 17. 52 mls/hr IV .Q24H [facility] Rx #:[id number] Intake, IV Titration 100 481.05 Amount Heparin Sodium,Porcine/ 481.05 D5w Pmx 25,000 unit In Dextrose/Water 1 500ml. bag @ 12 UNITS/KG/HR 17. 52 mls/hr IV .Q24H [facility] Rx #:[id number] cefTAZidime 2 gm In 100 Sodium Chloride 0.9% 100 ml @ 100 mls/hr IVPB DAILY RU Rx#:[id number] Oral 0 180 Output: Urine 0 - Exam HEENT head normocephalic and atraumatic Neck is supple no JVD no goiter no lymphadenopathy Chest exam reveals a few scattered crackles no wheezing Cardiac exam reveals regular heart sounds no gallops no murmurs Abdomen is soft nontender no organomegaly Extremity exam reveals poor peripheral pulses bilaterally there is ulcers on the toes - Labs CBC & Chem 7: 02/21/17 07:00 02/21/17 07:00 Labs: Abnormal Lab Results - Last 24 Hours (Table) 02/21/17 02/21/17 02/21/17 Range/Units 07:00 07:00 07:00 RBC 3.24 L (4.30-5.90) m/uL Hgb 10.7 L (13.0-17.5) gm/dL Hct 34.5 L (39.0-53.0) % MCV 106.7 H (80.0-100.0) fL MCHC 30.9 L (31.0-37.0) g/dL RDW 19.6 H (11.5-15.5) % Lymphocytes # 0.6 L (1.0-4.8) k/uL APTT 47.4 H (22.0-30.0) sec Potassium 5.5 H (3.5-5.1) mmol/L Chloride 96 L (98-107) mmol/L BUN 42 H (9-20) mg/dL Creatinine 7.80 H* (0.66-1.25) mg/dL Phosphorus (2.5-4.5) mg/dL 02/21/17 Range/Units 07:00 RBC (4.30-5.90) m/uL Hgb (13.0-17.5) gm/dL Hct (39.0-53.0) % MCV (80.0-100.0) fL MCHC (31.0-37.0) g/dL RDW (11.5-15.5) % Lymphocytes # (1.0-4.8) k/uL APTT (22.0-30.0) sec Potassium (3.5-5.1) mmol/L Chloride (98-107) mmol/L BUN (9-20) mg/dL Creatinine (0.66-1.25) mg/dL Phosphorus 7.4 H (2.5-4.5) mg/dL Assessment and Plan Plan: 1. Severe Peripheral arterial disease with ulcers on toes 3 and 4 on left foot. Patient had angiogram in 01/31/2017 showing occluded femoral artery bilaterally and no blood flow from the knee down bilaterally. Patient be placed on IV heparin. Patient scheduled for vascular procedure tomorrow. Wound culture from toes growing pseudomonas aeruginosa. Infectious disease following. 2. End-stage renal disease: Dialysis Monday. Nephrology following 3. History of coronary artery disease with previous cardiac stents and coronary bypass grafting 5 vessels in 2013 4. History of severe pulmonary hypertension on Revatio 5. Hyperphosphatemia: Continue the renvela. Also should be corrected with dialysis 6. Episodes of chest pain: Atypical. Evaluated by cardiology. Likely mildly elevated troponins are related to his renal failure 7. Essential hypertension 8. Constipation: Add Colace 100 mg twice a day 9. Hyperkalemia to be corrected with hemodialysis GI prophylaxis Pepcid and DVT prophylaxis IV heparin
[2017-02-21] MEDS: diphenhydrAMINE 25 MG CAP PO PRN ×2 (13:42→20:55)
--- NOTE | 2017-02-21 17:11 | PN ---
DATE OF SERVICE: 02/21/2017 REASON FOR FOLLOWUP: Left third toe wound with secondary infection. INTERVAL HISTORY: The patient is afebrile. He is currently waiting for his procedure, to be possibly done tomorrow. The patient denies having any chest pain or shortness of breath or cough. No abdominal pain or any diarrhea. On examination, blood pressure is 95/64 with a pulse of 95, temperature of 96.6. He is 93% on 3 L nasal cannula. General description is an elderly male up in the chair in no distress. RESPIRATORY SYSTEM: Unlabored breathing. Clear to auscultation anteriorly. HEART: S1, S2. Regular rate and rhythm. ABDOMEN: Soft. No tenderness. LEFT THIRD TOE: Currently dressed up. No obvious drainage on the dressing. LABS: Hemoglobin is 10.7, white count 7.1. DIAGNOSTIC IMPRESSION AND PLAN: Patient with a non-healing wound to the left third toe, more likely ischemic from his underlying peripheral arterial disease with a question of possible secondary cellulitis. He is currently covered with Fortaz. Local wound care with Aquacel Silver. Await the revascularization ( ) tomorrow. Continue supportive care.
[2017-02-22] MEDS: HEPARIN SODIUM,PORCINE/D5W PMX 25,000 UNIT in DEXTROSE/WATER 1 500ML.BAG IV SCH (05:14)
[2017-02-22] MEDS: MORPHINE SULFATE 4 MG/ML SYRINGE IV PRN ×2 (05:40→20:07)
[2017-02-22] MEDS: SEVELAMER 800 MG TAB PO SCH ×3 (06:44→18:02)
[2017-02-22 06:46] LABS: Anisocytosis Slight; Basophils # (A) 0.1 k/uL (0-0.2); Basophils % (A) 1 %; CH 32.1; CHCM 29.5; Eosinophils # (A) 0.2 k/uL (0-0.7); Eosinophils % (A) 2 %; HCT 34.9 % (39.0-53.0); HDW 2.93; HGB 10.1 gm/dL (13.0-17.5); Hypochromasia Marked; Luc # (Auto) 0.25; Luc % (Auto) 4; Lymphocytes # (A) 0.5 k/uL (1.0-4.8); Lymphocytes % (A) 8 %; MCH 31.6 pg (25.0-35.0); MCHC 28.9 g/dL (31.0-37.0); MCV 109.1 fL (80.0-100.0); Macrocytosis Marked; Mean Platelet Volume 9.4; Monocytes # (A) 0.8 k/uL (0-1.0); Monocytes % (A) 12 %; Neutrophils % (A) 74 %; RDW 19.8 % (11.5-15.5); WBC 6.9 k/uL (3.8-10.6); WBC (Perox) 7.47
[2017-02-22 06:51] LABS: Calcium 9.4 mg/dL (8.4-10.2); Total Protein 7.5 g/dL (6.3-8.2)
[2017-02-22] MEDS: METOPROLOL SUCCINATE (ER) 25 MG TAB.ER.24H PO SCH (06:51)
[2017-02-22] MEDS: CINACALCET 30 MG TAB PO SCH (06:51)
[2017-02-22] MEDS: CLOPIDOGREL 75 MG TAB PO SCH (06:51)
[2017-02-22] MEDS: DOCUSATE 100 MG CAP PO SCH ×2 (06:51→20:08)
[2017-02-22] MEDS: EZETIMIBE 10 MG TAB PO SCH (06:51)
[2017-02-22] MEDS: ASPIRIN 325 MG TAB PO SCH (06:51)
[2017-02-22] MEDS: SILDENAFIL 20 MG TAB PO SCH ×3 (06:52→20:08)
[2017-02-22] MEDS: ALLOPURINOL 100 MG TAB PO SCH (06:52)
[2017-02-22 08:09] LABS: Manual Review Performed
[2017-02-22 08:10] LABS: Polychromasia Present
[2017-02-22] MEDS ORDERED: MIDAZOLAM 2 MG/2 ML VIAL IV ONE (08:43)
[2017-02-22] MEDS ORDERED: LIDOCAINE 2% INJ 20 MG/ML SQ ONE (08:48)
[2017-02-22] MEDS ORDERED: IV FLUID CONTINUATION 500 ML IV ONE (08:54)
[2017-02-22] MEDS ORDERED: SODIUM CHLORIDE 0.9% 500 ML IV ONE (08:55)
[2017-02-22] MEDS ORDERED: HEPARIN SODIUM 1,000 UNIT/ML VIAL IV ONE (09:47)
[2017-02-22] MEDS ORDERED: niCARdipine Syringe (1,000 mcg/10 mL) IV ONE (10:22)
[2017-02-22] MEDS ORDERED: NITROGLYCERIN 1000MCG/10ML SYRINGE INTRAARTER ONE ×2 (10:24→10:29)
[2017-02-22] MEDS ORDERED: SODIUM CHLORIDE 0.9% 1,000 ML IV SCH (10:45)
[2017-02-22] MEDS ORDERED: CLOPIDOGREL 75 MG TAB PO ONE (10:47)
[2017-02-22] MEDS ORDERED: IODIXANOL 320 MG/ML 100 ML INTRAARTER ONE (10:48)
--- NOTE | 2017-02-22 14:33 | PN ---
DATE OF SERVICE: 02/22/2017 Reason for followup is left third toe wound with question of secondary cellulitis. INTERVAL HISTORY: The patient is afebrile. The patient is status post angioplasty to the left femoral. Patient tolerated the procedure. Patient currently denies having any significant chest pain or cough. No abdominal pain or any diarrhea. On examination, blood pressure 134/55 with a pulse of 97, temperature 97.8, he is 93% on 4 L nasal cannula. General description is an elderly male, lying in bed in no distress. RESPIRATORY SYSTEM: Unlabored breathing. Clear to auscultation anteriorly. HEART: S1, S2 with regular rate and rhythm. ABDOMEN: Soft, no tenderness. Left toes is wrapped, no obvious drainage on the dressing. LABS: Hemoglobin is 10.1, white count 6.9, BUN of 56, creatinine is 9.58. DIAGNOSTIC IMPRESSION AND PLAN: Patient with a left third toe nonhealing wound likely ischemic and patient has significant PAD, status post angioplasty. Continue local wound care with Aquacel Silver and finish up with Fortaz. Continue with supportive care. VAISHALI
[2017-02-22] MEDS: diphenhydrAMINE 25 MG CAP PO PRN ×2 (15:26→20:07)
--- NOTE | 2017-02-22 16:35 | PCN ---
DATE OF PROCEDURE: 02/22/2017 PERFORMING PHYSICIAN: Tunde Navarrete M.D., color checker roving or yarn. PROCEDURES PERFORMED: 1. Selective left common iliac artery angiogram. 2. Selective left common femoral artery angiogram. 3. Selective left profunda femoris angiogram. 4. Selective left [id number]-[id number]-[id number] angiogram. 5. Successful balloon angioplasty of the profunda femoris and common femoral artery using 5.0 x 80 mm drug-coated balloon, with good angiographic results. INDICATION: This is a 66-year-old gentleman who sees Dr. Sparks and Dr. Chahal as an outpatient who was struggling with critical limb ischemia and a non-healing ulcer involving the left foot. He underwent a peripheral angiogram a few weeks ago, and that showed extensive PAD with occluded bilateral femoral artery, occluded bilateral SFA, occluded bilateral popliteal, and no runoff below the knee. He was found to have severe disease involving the ostial of both profunda. APPROACH: Right brachial artery. COMPLICATIONS: None. LEVEL OF SEDATION: Moderate with sedation length of 2-1/2 hours. PROCEDURE DESCRIPTION: After obtaining informed consent, the patient was brought to the cardiac calibration laboratory technician. The right brachial artery was cannulated using micropuncture technique under ultrasound guidance. The micropuncture wire passed easily, then I placed initially an 11 cm 6 Swiss sheath in the right brachial artery. After that I started anticoagulation using heparin, and the patient was given a total of 8000 units of heparin IV. After that I advanced an 0.035 Advantage wire to the descending thoracic aorta and then I advanced the wire to the left common iliac artery. At that point I exchanged my 11 cm 6 Swiss sheath for a 70 cm 6 Swiss Raabe sheath using the Advantage wire. The tip of the sheath was positioned in the left common iliac artery. After that I did selective left common iliac, left common femoral, and left profunda angiogram. After that, I crossed the lesions in the left common femoral artery and left profunda using an 0.014 Advantage wire with the back-up support of 0.014 CXI catheter. The wire was advanced to the left profunda. After that I tried to advance a 5.0 x 100 mm AngioSculpt balloon over the 0.014 Advantage wire, but the balloon would not cross the lesion in the left common femoral artery. At that point I decided to go ahead and predilate using a 3-0 peripheral balloon which was ( )4 balloon, and I did that, but I was again unable to cross the lesion. At that point I advanced a 3-0 coronary balloon which was a ( )4 balloon and I was able to cross the lesions in both the common femoral artery on the left side and profound on the left side. I predilated under 12 atmospheres for about 30 seconds. After that I was able to cross the 40 peripheral balloon which was 014 balloon, and then I was able to cross the 2 lesions with the balloon and predilate where the balloon was inflated under 8 atmospheres for about 30 seconds. Subsequently I advanced the AngioSculpt balloon, which was a 50 x 100 balloon, and I crossed both lesions with the balloon, and the balloon was inflated under its nominal pressure for about another 30 seconds. At that point I wanted to use a drug-coated balloon, so I exchanged my 0.014 wire for an 0.035 wire, which was 0.035 Advantage wire using an 0.035 CXI catheter. I did that because I knew that the ( ) would not cross easily using 0.014 wire. I did inflate the drug-coated balloon which was 50 x 80 mm Impact DCB balloon under 12 atmospheres for 3 minutes. The following angiogram showed better and brisk flow in the profunda with reducing the stenosis in the profunda femoris lesion from 99% to about 40% and in the common femoral artery lesion from 99% to about 50% to 60%. I did selective left phcyg-rbi-aibe angiogram which showed the opacifications of fscao-vrr-usuc arteries which were not seen from before. At that point I decided to end the procedure, where I exchanged my 70 cm 6 Swiss sheath for an 11 cm 6 Swiss sheath using an 0.035 Advantage wire. The procedure was completed without any complication. POST-PROCEDURE MANAGEMENT: 1. Dual antiplatelet therapy. 2. Risk factor modification. 3. The patient will be scheduled to undergo stenting of the left common and left profunda if that wound does not heal on the left side.
--- NOTE | 2017-02-22 17:01 | LTR ---
February 22, 2017 RE: Gee Jeovanny K Dear Dr. Sparks: Mr. Jeovanny Flynn underwent successful balloon angioplasty of the left femoral artery with reasonable angiographic result and without any complication. I want to thank you for allowing me to participate in his care and please do not hesitate to call if you have any question or concerns. Sincerely, ANGELES PENN MD
--- NOTE | 2017-02-22 18:09 | P.PN ---
Subjective Patient is a 66-year-old male, a patient of . with known past medical history of end-stage renal disease, PAD, hypertension, coronary artery disease with previous stent and CABG 5 vessels, pacemaker, severe pulmonary hypertension and congestive heart failure. Patient presents to the emergency room with complaints of severe bilateral leg pain. He states that when the legs start hurting so severe he does start to have chest pain. Patient has known peripheral arterial disease has been seen by Dr. Vivar and had an angiogram on 01/31/2017 which showed severe peripheral arterial disease with occluded femoral artery bilaterally and no blood flow from the knee down bilaterally. Patient also has ulcers on the toes of the left foot. Infectious disease and cardiology following. Patient is maintained on IV heparin. On review of systems Pain is tolerable. Chest pain has resolved. There is no shortness of breath no cough Denies any nausea or vomiting. No abdominal pain He does reports small bowel movement yesterday. Denies any difficulty urinating. Objective - Vital Signs Vital signs: Vital Signs Temp 97.8 F 02/22/17 05:00 Pulse 80 02/22/17 14:00 Resp 14 02/22/17 14:00 BP 102/57 02/22/17 14:00 Pulse Ox 95 02/22/17 13:28 Intake & Output 02/21/17 02/22/17 02/22/17 18:59 06:59 18:59 Intake Total 1261.999 407.579 552 Output Total 150 0 Balance 1111.999 407.579 552 Weight 73 kg Intake: IV 444 81 432 0.9 240 250 Heparin Sodium,Porcine/ 204 81 32 D5w Pmx 25,000 unit In Dextrose/Water 1 500ml. bag @ 12 UNITS/KG/HR 17. 52 mls/hr IV .Q24H RU Rx #:[id number] Intake, IV Titration 457.999 326.579 Amount Heparin Sodium,Porcine/ 407.999 326.579 D5w Pmx 25,000 unit In Dextrose/Water 1 500ml. bag @ 12 UNITS/KG/HR 17. 52 mls/hr IV .Q24H RU Rx #:[id number] cefTAZidime 0.5 gm In 50 Sodium Chloride 0.9% 50 ml @ 50 mls/hr IVPB DAILY RU Rx#:[id number] Oral 360 120 Output: Urine 150 0 - Exam HEENT head normocephalic and atraumatic Neck is supple no JVD no goiter no lymphadenopathy Chest exam reveals a few scattered crackles no wheezing Cardiac exam reveals regular heart sounds no gallops no murmurs Abdomen is soft nontender no organomegaly Extremity exam reveals poor peripheral pulses bilaterally there is ulcers on the toes - Labs CBC & Chem 7: 02/22/17 06:07 02/22/17 06:07 Labs: Abnormal Lab Results - Last 24 Hours (Table) 02/22/17 02/22/17 02/22/17 Range/Units 06:07 06:07 06:07 RBC 3.20 L (4.30-5.90) m/uL Hgb 10.1 L (13.0-17.5) gm/dL Hct 34.9 L (39.0-53.0) % MCV 109.1 H (80.0-100.0) fL MCHC 28.9 L (31.0-37.0) g/dL RDW 19.8 H (11.5-15.5) % Plt Count 145 L (150-450) k/uL Lymphocytes # 0.5 L (1.0-4.8) k/uL APTT 48.9 H (22.0-30.0) sec Chloride 95 L (98-107) mmol/L Carbon Dioxide 19 L (22-30) mmol/L BUN 56 H (9-20) mg/dL Creatinine 9.58 H* (0.66-1.25) mg/dL Assessment and Plan Plan: 1. Severe Peripheral arterial disease with ulcers on toes 3 and 4 on left foot. Patient had angiogram in 01/31/2017 showing occluded femoral artery bilaterally and no blood flow from the knee down bilaterally. Patient be placed on IV heparin. Patient underwent angioplasty of lower extremity today by Dr Vivar. Wound culture from toes growing pseudomonas aeruginosa. Infectious disease following. 2. End-stage renal disease: Dialysis Monday. Nephrology following 3. History of coronary artery disease with previous cardiac stents and coronary bypass grafting 5 vessels in 2013 4. History of severe pulmonary hypertension on Revatio 5. Hyperphosphatemia: Continue the renvela. Also should be corrected with dialysis 6. Episodes of chest pain: Atypical. Evaluated by cardiology. Likely mildly elevated troponins are related to his renal failure 7. Essential hypertension 8. Constipation: Add Colace 100 mg twice a day 9. Hyperkalemia to be corrected with hemodialysis GI prophylaxis Pepcid and DVT prophylaxis IV heparin Continue current management otherwise will follow in am
[2017-02-23] MEDS: MORPHINE SULFATE 4 MG/ML SYRINGE IV PRN ×4 (01:51→21:06)
[2017-02-23] MEDS: diphenhydrAMINE 25 MG CAP PO PRN ×3 (01:52→21:06)
[2017-02-23 06:55] LABS: Anisocytosis Slight; Basophils % (A) 1 %; CH 31.5; CHCM 29.5; Eosinophils # (A) 0.1 k/uL (0-0.7); Eosinophils % (A) 1 %; HCT 29.8 % (39.0-53.0); HDW 3.18; HGB 8.9 gm/dL (13.0-17.5); Hypochromasia Marked; Luc # (Auto) 0.21; Luc % (Auto) 3; Lymphocytes # (A) 0.3 k/uL (1.0-4.8); Lymphocytes % (A) 4 %; MCHC 29.7 g/dL (31.0-37.0); MCV 107.5 fL (80.0-100.0); Macrocytosis Marked; Mean Platelet Volume 8.8; Monocytes # (A) 0.6 k/uL (0-1.0); Monocytes % (A) 8 %; Neutrophils # (A) 6.4 k/uL (1.3-7.7); Neutrophils % (A) 84 %; RBC 2.78 m/uL (4.30-5.90); RDW 19.8 % (11.5-15.5); WBC 7.6 k/uL (3.8-10.6); WBC (Perox) 7.98
[2017-02-23 07:02] LABS: Potassium 4.7 mmol/L (3.5-5.1); Total Bilirubin 1.1 mg/dL (0.2-1.3); Total Protein 7.2 g/dL (6.3-8.2)
[2017-02-23] MEDS: SEVELAMER 800 MG TAB PO SCH ×3 (07:02→17:20)
[2017-02-23] MEDS: CINACALCET 30 MG TAB PO SCH (08:32)
[2017-02-23] MEDS: EZETIMIBE 10 MG TAB PO SCH (08:32)
[2017-02-23] MEDS: DOCUSATE 100 MG CAP PO SCH ×2 (08:32→21:03)
[2017-02-23] MEDS: METOPROLOL SUCCINATE (ER) 25 MG TAB.ER.24H PO SCH (08:32)
[2017-02-23] MEDS: SILDENAFIL 20 MG TAB PO SCH ×3 (08:33→21:03)
[2017-02-23] MEDS: ALLOPURINOL 100 MG TAB PO SCH (08:33)
[2017-02-23] MEDS: ASPIRIN 325 MG TAB PO SCH (08:33)
[2017-02-23] MEDS: CLOPIDOGREL 75 MG TAB PO SCH (08:33)
[2017-02-23] MEDS ORDERED: DARBEPOETIN ALFA 40 MCG/0.4 ML SYRINGE SQ SCH (09:00)
--- NOTE | 2017-02-23 09:19 | P.PN ---
Subjective Patient is seen in follow-up for end-stage renal disease. He is maintained on hemodialysis on a Monday schedule via left upper extremity AV fistula. Patient has severe peripheral vascular disease and underwent peripheral intervention to the left lower extremity with 2 stents placed on February 22. He underwent hemodialysis yesterday and tolerated it well. Currently resting in bed. Left lower extremity pain is improved however he still has pain in his right lower extremity. Hemodynamically stable. Vital signs are stable. General: The patient appeared well nourished and normally developed. HEENT: Head exam is unremarkable. Neck is without jugular venous distension. LUNGS: Lungs are clear to auscultation and percussion. Breath sounds decreased. HEART: Rate and Rhythm are regular. First and second heart sounds normal. No murmurs, rubs or gallops. ABDOMEN: Abdominal exam reveals normal bowel sounds. Non-tender and non- distended. No evidence of peritonitis. EXTREMITITES: No clubbing, cyanosis, or edema. Objective - Vital Signs Vital signs: Vital Signs Temp 97.9 F 02/23/17 06:00 Pulse 102 H 02/23/17 06:00 Resp 19 02/23/17 06:00 BP 112/78 02/23/17 06:00 Pulse Ox 97 02/23/17 06:00 Intake & Output 02/22/17 02/23/17 02/23/17 18:59 06:59 18:59 Intake Total 552 20 Output Total 0 0 Balance 552 20 Weight 71 kg Intake: IV 432 0.9 250 Heparin Sodium,Porcine/ 32 D5w Pmx 25,000 unit In Dextrose/Water 1 500ml. bag @ 12 UNITS/KG/HR 17. 52 mls/hr IV .Q24H [facility] Rx #:[id number] Oral 120 20 Output: Urine 0 0 Other: # Voids 0 - Labs CBC & Chem 7: 02/23/17 06:28 02/23/17 06:28 Labs: Abnormal Lab Results - Last 24 Hours (Table) 02/23/17 02/23/17 Range/Units 06:28 06:28 RBC 2.78 L (4.30-5.90) m/uL Hgb 8.9 L (13.0-17.5) gm/dL Hct 29.8 L (39.0-53.0) % MCV 107.5 H (80.0-100.0) fL MCHC 29.7 L (31.0-37.0) g/dL RDW 19.8 H (11.5-15.5) % Lymphocytes # 0.3 L (1.0-4.8) k/uL BUN 34 H (9-20) mg/dL Creatinine 6.62 H* (0.66-1.25) mg/dL ALT 18 L (21-72) U/L Assessment and Plan Plan: Assessment: #1. End-stage renal disease maintained on hemodialysis on a Monday schedule via left upper extremity AV fistula. #2. Severe pulmonary hypertension maintained on Revatio. #3. Severe peripheral vascular disease status post peripheral intervention with 2 stents placed to the left lower extremity. #4. Chronic kidney disease mineral bone disease. #5. Hyperkalemia secondary to chronic kidney disease. Improved postdialysis. #6. Anemia of chronic kidney disease. Plan: Hemodialysis tomorrow with goal 2-3 L ultrafiltration. Cardiology following. Maintain renal diet. Maintain Renvela with meals. Continue with Sensipar. Start Aranesp. Stable to be discharged home from nephrology standpoint.
--- NOTE | 2017-02-23 09:33 | IR ---
EXAMINATION TYPE: IR bar captain iliac DATE OF EXAM: 02/22/2017 11:08 AM COMPARISON: NONE HISTORY: Peripheral vascular occlusive disease. Fluoroscopy was provided to the referring clinician. See dictated report from cardiology.
[2017-02-23 10:18] LABS: % Iron Saturation 20.1 % (20-50)
--- NOTE | 2017-02-23 12:25 | P.PN ---
Subjective This is a 66-year-old male, a patient of . He has a known past medical history of end-stage renal disease, PAD, hypertension, coronary artery disease with previous stent and CABG 5 vessels, pacemaker, severe pulmonary hypertension and congestive heart failure. Patient presents to the emergency room with complaints of severe bilateral leg pain. He states that when the legs start hurting so severe he does start to have chest pain. Patient no has known peripheral arterial disease has been seen by Dr. Vivar and had an angiogram on 01/31/2017 which showed severe peripheral arterial disease with occluded femoral artery bilaterally and no blood flow from the knee down bilaterally. Patient also has ulcers on the toes of the left foot. Infectious disease and cardiogenic following. Patient is maintained on IV heparin. Pain is tolerable. Chest pain has resolved. Denies any nausea or vomiting. He does reports small bowel movement yesterday. Denies any difficulty urinating. 02/20/2017 patient lying in bed comfortably. He is scheduled for procedure for his peripheral arterial disease today. He is also scheduled for hemodialysis. Reports not having bowel movements over the last couple a days. Denies any chest pain or shortness of breath. Denies any nausea or vomiting. Denies any difficulty urinating. 02/23/2017 postop day 1 status post balloon angioplasty of the profunda femoris and, femoral artery by Dr. Vivar. Patient tolerated surgery well. Patient reports improvement in his pain in his legs. However still having some pain and is afraid to walk on the legs. Denies any chest pain or shortness of breath. Denies any nausea or vomiting. Reports having regular bowel movements. Denies any difficulty urinating. Objective - Vital Signs Vital signs: Vital Signs Temp 99 F 02/23/17 11:23 Pulse 98 02/23/17 11:23 Resp 20 02/23/17 11:27 BP 114/59 02/23/17 11:23 Pulse Ox 95 02/23/17 11:23 Intake & Output 02/22/17 02/23/17 02/23/17 18:59 06:59 18:59 Intake Total 552 20 280 Output Total 0 0 Balance 552 20 280 Weight 71 kg Intake: IV 432 0.9 250 Heparin Sodium,Porcine/ 32 D5w Pmx 25,000 unit In Dextrose/Water 1 500ml. bag @ 12 UNITS/KG/HR 17. 52 mls/hr IV .Q24H RU Rx #:[id number] Oral 120 20 280 Output: Urine 0 0 Other: # Voids 0 - Exam Head normocephalic Neck supple Lungs clear to auscultation bilaterally no wheezing or crackles Heart regular rate and rhythm S1-S2, no rub or gallop positive murmur Abdomen is soft nontender nondistended positive bowel sounds Extremities no edema. Left foot ulcers on toes 3 and 4 . Ulcers between the toes. Dressing clean dry and intact Neuro alert and orientated to 3 - Labs CBC & Chem 7: 02/23/17 06:28 02/23/17 06:28 Labs: Abnormal Lab Results - Last 24 Hours (Table) 02/23/17 02/23/17 02/23/17 Range/Units 06:07 06:28 06:28 RBC 2.78 L (4.30-5.90) m/uL Hgb 8.9 L (13.0-17.5) gm/dL Hct 29.8 L (39.0-53.0) % MCV 107.5 H (80.0-100.0) fL MCHC 29.7 L (31.0-37.0) g/dL RDW 19.8 H (11.5-15.5) % Lymphocytes # 0.3 L (1.0-4.8) k/uL BUN 34 H (9-20) mg/dL Creatinine 6.62 H* (0.66-1.25) mg/dL Iron 38 L (49-181) ug/dL TIBC 189 L (261-462) ug/dL Ferritin 774 H (18-464) ng/mL ALT 18 L (21-72) U/L Assessment and Plan Plan: 1. Severe Peripheral arterial disease with ulcers on toes 3 and 4 on left foot. Patient had angiogram in 01/31/2017 showing occluded femoral artery bilaterally and no blood flow from the knee down bilaterally. Patient be placed on IV heparin. Patient status post angioplasty of the profunda femoris and common femoral artery. Wound culture from toes growing pseudomonas aeruginosa. Infectious disease following. Continue IV heparin. Await final recommendations for antibiotics per infectious disease 2. End-stage renal disease: Dialysis Monday. Nephrology following 3. History of coronary artery disease with previous cardiac stents and coronary bypass grafting 5 vessels in 2014 4. History of severe pulmonary hypertension on Revatio 5. Hyperphosphatemia: Continue the renvela. 6. Episodes of chest pain: Atypical. Evaluated by cardiology. Likely mildly elevated troponins are related to his renal failure 7. Essential hypertension 8. Constipation: Add Colace 100 mg twice a day 9. Hyperkalemia secondary to end-stage renal disease. Resolved 10. Anemia hemoglobin 8.9 likely related to chronic kidney disease. check iron studies. We'll monitor GI prophylaxis Pepcid and DVT prophylaxis IV heparin Consult physical therapy Anticipate discharge home possibly tomorrow I performed an examination of the patient and discussed their management with the physician Medical I D Sales. I have reviewed the Physician Medical I D Sales's notes and agree with the documented findings and plan of care
--- NOTE | 2017-02-23 15:31 | P.PN ---
Subjective Principal diagnosis: PAD This is a pleasant 66-year-old -[place] gentleman who follows with Dr. Vivar in the office. He has known history of end-stage renal disease on hemodialysis, coronary artery disease with prior bypass surgery, prior stent placement, prior pacemaker, hypertension, hyperlipidemia, peripheral vascular disease, who was recently in the hospital in January of this year at which time he underwent an abdominal aortogram with bilateral lower extremity runoff by Dr. Vivar. Patient was found to have a heavily calcified peripheral arterial system with severe aortoiliac disease involving the external iliac arteries bilaterally. Severe femoral popliteal disease with severe disease involving the common femoral arteries bilaterally, severe disease affecting the profunda bilaterally and occluded bilateral superficial femoral artery. He presents to the hospital on this occasion with symptoms of severe pain in his left foot. 02/23/2017 Patient underwent successful balloon angioplasty of the profunda femoris and common femoral artery yesterday. He was seen and examined today, states that his left foot is feeling much better overall. Complaining of significant pain in his right foot today. Patient states he is not comfortable with going home because of the significant pain and unsteadiness. Physical therapy consult patient has been requested. I did speak with Dr. Vivar regarding doing a procedure for the right leg, we'll not be able to be performed until next week as an outpatient. Objective - Vital Signs Vital signs: Vital Signs Temp 99 F 02/23/17 11:23 Pulse 98 02/23/17 11:23 Resp 20 02/23/17 11:27 BP 114/59 02/23/17 11:23 Pulse Ox 95 02/23/17 11:23 Intake & Output 02/22/17 02/23/17 02/23/17 18:59 06:59 18:59 Intake Total 552 20 660 Output Total 0 0 Balance 552 20 660 Weight 71 kg Intake: IV 432 120 0.9 250 120 Heparin Sodium,Porcine/ 32 D5w Pmx 25,000 unit In Dextrose/Water 1 500ml. bag @ 12 UNITS/KG/HR 17. 52 mls/hr IV .Q24H RU Rx #:[id number] Oral 120 20 540 Output: Urine 0 0 Other: # Voids 0 - Exam PHYSICAL EXAMINATION: HEENT: Head is atraumatic, normocephalic. Pupils equal, round. Neck is supple. There is no elevated jugular venous pressure. HEART EXAMINATION: Heart S1 and S2 systolic ejection murmur is heard. CHEST EXAMINATION: Lungs are clear to auscultation and precussion. No chest wall tenderness is noted on palpation or with deep breathing. ABDOMEN: Soft, nontender. Bowel sounds are heard. No organomegaly noted. EXTREMITIES:[ Right foot cool to the touch. Left foot warm, Doppler pulse. Right radial site clean and dry, good distal pulse. NEUROLOGIC patient is awake, alert and oriented -3. - Labs CBC & Chem 7: 02/23/17 06:28 02/23/17 06:28 Labs: Abnormal Lab Results - Last 24 Hours (Table) 02/23/17 02/23/17 02/23/17 Range/Units 06:07 06:28 06:28 RBC 2.78 L (4.30-5.90) m/uL Hgb 8.9 L (13.0-17.5) gm/dL Hct 29.8 L (39.0-53.0) % MCV 107.5 H (80.0-100.0) fL MCHC 29.7 L (31.0-37.0) g/dL RDW 19.8 H (11.5-15.5) % Lymphocytes # 0.3 L (1.0-4.8) k/uL BUN 34 H (9-20) mg/dL Creatinine 6.62 H* (0.66-1.25) mg/dL Iron 38 L (49-181) ug/dL TIBC 189 L (261-462) ug/dL Ferritin 774 H (18-464) ng/mL ALT 18 L (21-72) U/L Assessment and Plan Plan: Assessment and plan #1 symptoms of severe left foot pain in a patient with known peripheral vascular disease status post abdominal aortogram and bilateral lower extremity runoff in January, which revealed heavily calcified peripheral arterial system with severe aortoiliac disease involving the external iliac arteries bilaterally , severe femoropopliteal disease, severe disease affecting the profunda bilaterally and occluded bilateral superficial femoral artery. Status post successful balloon angioplasty of the profunda femoris and common from oral artery yesterday. #2 chest pain, atypical in nature. Troponins 0.05, 0.05, 0.05, EKG shows a sensed V paced rhythm. Troponin abnormality likely secondary to abnormal renal function. Myocardial infarction ruled out. #3 end-stage renal disease on hemodialysis #4 hypertension #5 hyperlipidemia #6 known history of coronary artery disease with prior bypass surgery and stent placements Plan Radiology's recommendation at this time is to continue current medications. Next week patient will be scheduled to undergo right femoral PTCA. Patient will be contacted at home regarding the date and timing of this. DNP note has been reviewed, I agree with a documented findings and plan of care. Patient was seen and examined.
--- NOTE | 2017-02-23 22:14 | PN ---
DATE OF SERVICE: 02/23/2017 REASON FOR FOLLOWUP: Left third toe wound with significant cellulitis. INTERVAL HISTORY: The patient is afebrile. He is feeling better. Pain to the left toe is currently controlled. There is no drainage from the wound. No significant chest pain or cough. No abdominal pain or diarrhea. On examination, blood pressure is 101/56 with a pulse of 93, temperature 97.4. He is 99% on 4 L nasal cannula. General description is an elderly male up in the chair in no distress. RESPIRATORY SYSTEM: Unlabored breathing. Clear to auscultation anteriorly. HEART: S1, S2. Regular rate and rhythm. ABDOMEN: Soft. No tenderness. Left third toe wound: No significant slough tissue drainage was noticed or foul-smelling. LABS: Hemoglobin is 8.9 with a white count of 7.6. BUN of 34, creatinine 6.62. DIAGNOSTIC IMPRESSION AND PLAN: Patient with left third toe ischemic wound with a question of secondary cellulitis. Patient at this time will continue on Fortaz. Local wound care with Aquacel Silver. Plan to finish therapy with oral Cipro. Patient does have some nausea with the Cipro; would be advised to take it on a full stomach. Close outpatient followup. Continue supportive care. MTDD
[2017-02-24] MEDS: ACETAMINOPHEN TAB 325 MG TAB PO PRN ×2 (01:45→13:06)
[2017-02-24] MEDS: SEVELAMER 800 MG TAB PO SCH ×3 (06:19→16:51)
[2017-02-24 07:23] LABS: Calcium 9.2 mg/dL (8.4-10.2); Potassium 4.9 mmol/L (3.5-5.1); Total Bilirubin 0.9 mg/dL (0.2-1.3)
[2017-02-24 07:52] LABS: Anisocytosis Slight; CH 31.7; CHCM 29.5; HCT 30.7 % (39.0-53.0); HDW 3.09; HGB 9.1 gm/dL (13.0-17.5); Hypochromasia Marked; MCHC 29.6 g/dL (31.0-37.0); MCV 108.1 fL (80.0-100.0); Macrocytosis Marked; Mean Platelet Volume 8.9; RBC 2.84 m/uL (4.30-5.90); RDW 19.9 % (11.5-15.5); WBC (Perox) 8.35
[2017-02-24] MEDS: DOCUSATE 100 MG CAP PO SCH ×2 (07:56→20:35)
[2017-02-24] MEDS: CINACALCET 30 MG TAB PO SCH (07:56)
[2017-02-24] MEDS: ALLOPURINOL 100 MG TAB PO SCH (07:58)
[2017-02-24] MEDS: CLOPIDOGREL 75 MG TAB PO SCH (07:58)
[2017-02-24] MEDS: diphenhydrAMINE 25 MG CAP PO PRN ×2 (07:58→14:13)
[2017-02-24] MEDS: ASPIRIN 325 MG TAB PO SCH (07:58)
[2017-02-24] MEDS: METOPROLOL SUCCINATE (ER) 25 MG TAB.ER.24H PO SCH (07:59)
[2017-02-24] MEDS: EZETIMIBE 10 MG TAB PO SCH (07:59)
[2017-02-24] MEDS: SILDENAFIL 20 MG TAB PO SCH ×3 (07:59→20:35)
[2017-02-24 08:55] LABS: Add Differential Manual Differential
[2017-02-24 09:00] LABS: Band Neutrophils % 0.5 %; Nucleated Red Blood Cells 1 /100 WBC (0-0); Total Cells Counted 200; WBC 8.2 k/uL (3.8-10.6)
[2017-02-24] MEDS ORDERED: SODIUM FERRIC GLUCONAT-SUCROSE 125 MG in SODIUM CHLORIDE 0.9% 100 ML IVPB SCH (09:00)
[2017-02-24 09:01] LABS: Polychromasia Present
[2017-02-24 09:02] LABS: Spherocytes Present
[2017-02-24] MEDS ORDERED: IV FLUID CONTINUATION 1,000 ML IV ONE (09:07)
[2017-02-24] MEDS ORDERED: LIDOCAINE 2% INJ 20 MG/ML SQ ONE ×2 (09:42→09:44)
[2017-02-24] MEDS ORDERED: MIDAZOLAM 2 MG/2 ML VIAL IV ONE (09:43)
[2017-02-24] MEDS ORDERED: HEPARIN SODIUM 1,000 UNIT/ML VIAL IV ONE (09:46)
[2017-02-24] MEDS ORDERED: NITROGLYCERIN 1000MCG/10ML SYRINGE INTRACORON ONE (10:42)
[2017-02-24] MEDS: NITROGLYCERIN 1000MCG/10ML SYRINGE INTRAARTER ONE ×2 (10:42→11:03)
[2017-02-24] MEDS ORDERED: niCARdipine Syringe (1,000 mcg/10 mL) INTRACORON ONE (10:43)
[2017-02-24] MEDS: niCARdipine Syringe (1,000 mcg/10 mL) INTRAARTER ONE ×2 (10:43→11:03)
[2017-02-24] MEDS ORDERED: IODIXANOL 320 MG/ML 100 ML INTRAARTER ONE (11:22)
[2017-02-24] MEDS ORDERED: SODIUM CHLORIDE 0.9% 1,000 ML IV SCH (11:30)
--- NOTE | 2017-02-24 11:47 | PCN ---
DATE OF SERVICE: 02/24/2017 PERCUTANEOUS PERIPHERAL INTERVENTION PERFORMING PHYSICIAN: Tunde Navarrete MD, apartment groundskeeper. PROCEDURE PERFORMED: 1. Selective right common femoral artery angiogram. 2. Selective right profunda femoris angiogram. 3. Selective right [id number] angiogram. 4. Balloon angioplasty of the right common femoral artery and right profunda using 6.0 mm AngioSculpt balloon. 5. Successful stenting of the right common femoral artery and right profunda using a 7.0 x 60 mm self-expandable stent with good angiographic results. INDICATION: This is a pleasant 66-year-old gentleman who sees Dr. Sparks and sees Dr. Chahal as an outpatient, who was admitted to the hospital with critical limb ischemia with resting pain of the right leg and tissue loss of the left leg. He underwent a peripheral angiogram a few weeks ago and that showed occluded bilateral femoral artery with critical disease involving the ostial profunda bilaterally with occluded bilateral SFA and no flow below the knee bilaterally. The patient underwent successful balloon angioplasty of the left common femoral artery and left profunda and he was brought today to undergo balloon angioplasty of the right femoral artery and right profunda. APPROACH: Right brachial artery. COMPLICATIONS: None. LEVEL OF SEDATION: Moderate with sedation a length of 2 hours. PROCEDURE DESCRIPTION: After obtaining an informed consent, the patient was brought to the cardiac labor relations or personnel negotiator. The right brachial artery was cannulated using micropuncture technique. Micropuncture wire passed easily. Then I placed a 70 cm 6 English sheath in the right brachial artery. The sheath was advanced over an 0.035 advantage wire to the distal aorta. Subsequently, I did select the right common iliac artery and I advanced the sheath to the right common iliac artery. After that, anticoagulation was initiated using heparin and the patient was given a total of 8000 units of heparin IV. After that, I was able to cross the POSTAL TRANSPORTATION CLERK of the right common femoral artery and right profunda using an 0.014 advantage wire with the back-up support of 0.014 QuickCross catheter. After that, I did exchange my 0.014 advantage wire into an 0.014 Astato wire. After that, I did balloon angioplasty of the right profunda and right common femoral artery using 3.0 x 30 mm coronary balloon. After that, I did balloon angioplasty using 4.0 x 60 mm balloon. Subsequently, I was able to advance a 6.0 AngioSculpt balloon where I did balloon angioplasty using the AngioSculpt where I was able to inflate the AngioSculpt multiple times to cut the ostial right profunda. After that, the following angiogram showed severe residual stenosis involving the right common femoral artery and the right profunda and at that point, I decided to stent that, so I did deploy 7.0 x 60 mm self-expandable stent, where the stent was positioned under fluoroscopy guidance and deployed after that. I postdilated that stent using a 6 mm balloon. The following angiogram showed an excellent angiographic result without perforation and without dissection with a good flow. Postprocedure management will be: 1. Dual antiplatelet therapy. 2. Risk factor modifications. 3. Will follow up with the patient.
[2017-02-24] MEDS: HEPARIN SODIUM,PORCINE/D5W PMX 25,000 UNIT in DEXTROSE/WATER 1 500ML.BAG IV SCH (12:55)
[2017-02-24 15:38] VITALS: RESP 16
[2017-02-24] MEDS ORDERED: HYDROcodone/APAP 5-325MG 1 EACH TAB PO PRN (16:02)
--- NOTE | 2017-02-24 16:07 | P.PN ---
Subjective This is a 66-year-old male, a patient of . He has a known past medical history of end-stage renal disease, PAD, hypertension, coronary artery disease with previous stent and CABG 5 vessels, pacemaker, severe pulmonary hypertension and congestive heart failure. Patient presents to the emergency room with complaints of severe bilateral leg pain. He states that when the legs start hurting so severe he does start to have chest pain. Patient no has known peripheral arterial disease has been seen by Dr. Vivar and had an angiogram on 01/31/2017 which showed severe peripheral arterial disease with occluded femoral artery bilaterally and no blood flow from the knee down bilaterally. Patient also has ulcers on the toes of the left foot. Infectious disease and cardiogenic following. Patient is maintained on IV heparin. Pain is tolerable. Chest pain has resolved. Denies any nausea or vomiting. He does reports small bowel movement yesterday. Denies any difficulty urinating. 02/20/2017 patient lying in bed comfortably. He is scheduled for procedure for his peripheral arterial disease today. He is also scheduled for hemodialysis. Reports not having bowel movements over the last couple a days. Denies any chest pain or shortness of breath. Denies any nausea or vomiting. Denies any difficulty urinating. 02/23/2017 postop day 1 status post balloon angioplasty of the profunda femoris and, femoral artery on the left by Dr. Vivar. Patient tolerated surgery well. Patient reports improvement in his pain in his legs. However still having some pain and is afraid to walk on the legs. Denies any chest pain or shortness of breath. Denies any nausea or vomiting. Reports having regular bowel movements. Denies any difficulty urinating. 02/24/2017 patient underwent successful stenting of the right common femoral artery and right profunda today. Leg pain and showing some improvement. Currently still using the IV morphine. Kihei will be added. Denies any chest pain or shortness of breath. Denies any nausea vomiting. Having bowel movements. Denies any difficulty urinating. Undergoing hemodialysis today Objective - Vital Signs Vital signs: Vital Signs Temp 97.1 F L 02/24/17 08:58 Pulse 88 02/24/17 15:31 Resp 16 02/24/17 15:31 BP 132/60 02/24/17 15:31 Pulse Ox 96 02/24/17 12:06 Intake & Output 02/23/17 02/24/17 02/24/17 18:59 06:59 18:59 Intake Total 660 320 400 Balance 660 320 400 Weight 71.5 kg Intake: IV 120 320 100 0.9 120 320 Intake, IV Titration 100 Amount cefTAZidime 0.5 gm In 100 Sodium Chloride 0.9% 50 ml @ 50 mls/hr IVPB DAILY [facility] Rx#:[id number] Oral 540 200 - Exam Head normocephalic Neck supple Lungs clear to auscultation bilaterally no wheezing or crackles Heart regular rate and rhythm S1-S2, no rub or gallop positive murmur Abdomen is soft nontender nondistended positive bowel sounds Extremities no edema. Left foot ulcers on toes 3 and 4 . Ulcers between the toes. Dressing clean dry and intact Neuro alert and orientated to 3 - Labs CBC & Chem 7: 02/24/17 06:32 02/24/17 06:32 Labs: Abnormal Lab Results - Last 24 Hours (Table) 02/24/17 02/24/17 Range/Units 06:32 06:32 RBC 2.84 L (4.30-5.90) m/uL Hgb 9.1 L (13.0-17.5) gm/dL Hct 30.7 L (39.0-53.0) % MCV 108.1 H (80.0-100.0) fL MCHC 29.6 L (31.0-37.0) g/dL RDW 19.9 H (11.5-15.5) % Lymphocytes # (Manual) 0.4 L (1.0-4.8) k/uL Monocytes # (Manual) 1.1 H (0-1.0) k/uL Nucleated RBCs 1 H (0-0) /100 WBC BUN 47 H (9-20) mg/dL Creatinine 8.95 H* (0.66-1.25) mg/dL Glucose 114 H (74-99) mg/dL Assessment and Plan Plan: 1. Severe Peripheral arterial disease with ischemic ulcers on toes 3 and 4 on left foot. Patient had angiogram in 01/31/2017 showing occluded femoral artery bilaterally and no blood flow from the knee down bilaterally. Patient be placed on IV heparin. Patient status post angioplasty of the profunda femoris and common femoral artery. Wound culture from toes growing pseudomonas aeruginosa. Infectious disease following. Continue the Fortaz. Continue IV heparin. At time of discharge infectious diseases recommending Cipro. Patient did undergo successful stenting of the right common femoral artery and right profunda today with Dr. Vivar 2. End-stage renal disease: Dialysis Monday. Nephrology following 3. History of coronary artery disease with previous cardiac stents and coronary bypass grafting 5 vessels in 2013 4. History of severe pulmonary hypertension on Revatio 5. Hyperphosphatemia: Continue the renvela. 6. Episodes of chest pain: Atypical. Evaluated by cardiology. Likely mildly elevated troponins are related to his renal failure 7. Essential hypertension 8. Constipation: Add Colace 100 mg twice a day 9. Hyperkalemia secondary to end-stage renal disease. Resolved 10. Anemia of chronic kidney disease and iron deficiency anemia. Add iron supplement 11. Pain control will add Kihei GI prophylaxis Pepcid and DVT prophylaxis IV heparin Consult physical therapy Anticipate discharge possibly tomorrow when cleared by cardiology I performed an examination of the patient and discussed their management with the physician Manager Community Development. I have reviewed the Physician Manager Community Development's notes and agree with the documented findings and plan of care
[2017-02-24] MEDS: MORPHINE SULFATE 4 MG/ML SYRINGE IV PRN ×2 (16:42→21:03)
--- NOTE | 2017-02-24 16:54 | PN ---
DATE OF SERVICE: 02/24/2017 REASON FOR FOLLOWUP: Left second toe wound, ischemic, with secondary cellulitis. INTERVAL HISTORY: The patient is afebrile. He is feeling better. The patient is status post PTCA and stenting of his right leg by Dr. Navarrete. Patient tolerated the procedure. Patient denies significant chest pain, shortness of breath or cough. No abdominal pain or any diarrhea. On examination, blood pressure is 132/60 with a pulse of 80, temperature 98. He is 94% on 4 L nasal cannula. General description is an elderly male lying in bed in no distress. RESPIRATORY SYSTEM: Unlabored breathing. Left second toe is currently dressed up. No obvious drainage on the dressing. LABS: Hemoglobin is 9.1, white count of 8.2 with a BUN of 47, creatinine 8.95. DIAGNOSTIC IMPRESSION AND PLAN: Patient with left second toe non-healing wound, likely secondary to underlying ischemia with a component of possible cellulitis and wound culture with pseudomonas, currently on Fortaz. That will be continued. Our plan will be to finish therapy with p.o. Cipro. Local wound care with Aquacel Silver. Continue supportive care.
[2017-02-24 20:56] VITALS: BP 153/56; PULSE 76; TEMP 97.4
[2017-02-24 21:25] LABS: Anisocytosis Moderate; CH 32.3; CHCM 30.7; HCT 28.6 % (39.0-53.0); HDW 3.57; HGB 8.8 gm/dL (13.0-17.5); Hypochromasia Marked; MCH 32.7 pg (25.0-35.0); MCHC 30.8 g/dL (31.0-37.0); MCV 105.9 fL (80.0-100.0); Macrocytosis Marked; Poikilocytosis Slight; RDW 20.4 % (11.5-15.5); WBC (Perox) 12.01
[2017-02-24 21:34] LABS: Add Differential Manual Differential
[2017-02-24 21:39] LABS: Nucleated Red Blood Cells 2 /100 WBC (0-0); Total Cells Counted 200; WBC 12.7 k/uL (3.8-10.6)
[2017-02-24 21:40] LABS: Manual Review Performed; Polychromasia Present; Toxic Granulation Present
--- NOTE | 2017-02-24 23:04 | P.CON ---
Consult Note - . Consult date: 02/24/17 Assessment/Plan:: Vascular surgery consult: Reason for consult: Swelling of the right arm post peripheral intervention History of chief complaint this patient earlier today underwent a complex intervention by Dr. Navarrete. In the postoperative phase he developed swelling in the right arm. Patient has had some episodes of mild numbness and some pain but at the time of our examination he complains of fairly minimal numbness or tingling. This patient has numerous severe comorbidities, including history of peripheral vascular disease with rest pain and peripheral ulcerations, end-stage renal disease with hemodialysis AV fistula in the left upper arm, known atherosclerotic heart disease, known severe pulmonary hypertension, severe ischemic cardiomyopathy, Physical examination: Alert oriented 66-year-old -[place] gentleman. No acute distress. He has an AV fistula in the left arm. He has firmness to the right upper arm. We are able to reduce the firmness in the area of the puncture site and maintain a lack of swelling however the minute we take pressure off of the area of puncture it abruptly swells again. We performed an ultrasound in the room and I felt that we had an area that appeared to communicate with hematoma from the brachial artery. Impression: Pseudoaneurysm right brachial artery controlled with pressure but with ongoing communication from the artery when pressure is not applied. Recommendation: Dr. Melo is out of town at this time. I am currently not privileged for this procedure. I spoke personally with Dr. Valencia at [facility]. He agreed to accept the case. He will be transported with pressure directly on the artery. They should be able to have an operating crew ready about the same time we would by calling accruing here. I discussed this with patient and family. They understand the process and risks.
--- NOTE | 2017-02-25 08:27 | US ---
EXAMINATION TYPE: US extremity nonvasc mass RT DATE OF EXAM: 02/24/2017 10:29 PM COMPARISON: NONE CLINICAL HISTORY: 66-year-old male hematoma . Technique: Right antecubital fossa scanned. FINDINGS: Spray Gun Striper notes: Images taken to demonstrate arterial flow with guidance from Dr Bower. Patient was scanned by Dr. Bower, images taken for documentation purposes and to show arterial flow. The images show generalized subcutaneous edema. No sizable hematoma is seen on the images. A patent a rtery is demonstrated on the images. IMPRESSION: Targeted scanning right antecubital fossa as above performed by the vascular surgeon.
--- NOTE | 2017-02-25 09:15 | LTR ---
February 24, 2017 RE: Jeovanny Flynn Dear Xochitl: Mr. Jeovanny Flynn underwent successful balloon angioplasty and stenting of the right femoral artery with good angiographic results and without any complication. As you remember he underwent successful balloon angioplasty of the left common femoral artery a few days ago and today he was brought in to undergo balloon angioplasty of the right femoral artery. I want to thank you for allowing me to participate in his care. Please do not hesitate to call if you have any question or concern. Sincerely, ANGELES PENN MD
--- NOTE | 2017-03-07 16:53 | IR ---
EXAMINATION TYPE: IR stent intravas non coronary DATE OF EXAM: 02/24/2017 CLINICAL HISTORY: Right leg pain TECHNIQUE: Fluoroscopy. COMPARISON: None. FINDINGS: Fluoroscopic guidance was provided during right lower extremity angiogram and angioplasty procedure performed by Dr. Navarrete. A total of 35 minutes of fluoroscopic time was utilized during the procedure and multiple spot images are acquired. Please refer to procedure note for further details a s I was not present nor performed procedure. IMPRESSION: As Above.
== END 2017-02-25 04:57 | disposition short-term general hospital (02) | DRG 252 ==
LOC: EC 08:22 → 6SEL 10:24 → OBSVTOIN 02-20 11:58 → 6SEL 02-25 02:05
PROVIDERS: ADMIT Internal Medicine; ATTEND Internal Medicine
PROC: 5A1D60Z (ICD-10-PCS; 2017-02-17)
PROC: B41GYZZ Fluoroscopy of Left Lower Extremity Arteries using Other Contrast (ICD-10-PCS; 2017-02-22)
PROC: 047L3Z1 Dilation of Left Femoral Artery using Drug-Coated Balloon, Percutaneous Approach (ICD-10-PCS; principal; 2017-02-22 08:20)
PROC: 047K3DZ Dilation of Right Femoral Artery with Intraluminal Device, Percutaneous Approach (ICD-10-PCS; 2017-02-24)
PROC: B41FYZZ Fluoroscopy of Right Lower Extremity Arteries using Other Contrast (ICD-10-PCS; 2017-02-24)
DX: I73.9 Peripheral vascular disease, unspecified (principal); N18.6 End stage renal disease; I13.2 Hypertensive heart and chronic kidney disease with heart failure and with stage 5 chronic kidney disease, or end stage renal disease; N25.81 Secondary hyperparathyroidism of renal origin; I97.51 Accidental puncture and laceration of a circulatory system organ or structure during a circulatory system procedure; E88.89 Other specified metabolic disorders; I27.2 Other secondary pulmonary hypertension; I50.9 Heart failure, unspecified; L97.529 Non-pressure chronic ulcer of other part of left foot with unspecified severity; E87.5 Hyperkalemia; E83.39 Other disorders of phosphorus metabolism; L03.032 Cellulitis of left toe; I99.8 Other disorder of circulatory system; D63.1 Anemia in chronic kidney disease; D50.9 Iron deficiency anemia, unspecified; I25.10 Atherosclerotic heart disease of native coronary artery without angina pectoris; E78.5 Hyperlipidemia, unspecified; M19.91 Primary osteoarthritis, unspecified site; G47.33 Obstructive sleep apnea (adult) (pediatric); I25.5 Ischemic cardiomyopathy; M10.9 Gout, unspecified; Z99.2 Dependence on renal dialysis; Z95.5 Presence of coronary angioplasty implant and graft; Z95.1 Presence of aortocoronary bypass graft; Z95.0 Presence of cardiac pacemaker; Z87.891 Personal history of nicotine dependence; Z99.81 Dependence on supplemental oxygen; Z88.1 Allergy status to other antibiotic agents; Z88.0 Allergy status to penicillin; Z88.8 Allergy status to other drugs, medicaments and biological substances; Z82.49 Family history of ischemic heart disease and other diseases of the circulatory system; Y92.230 Patient room in hospital as the place of occurrence of the external cause; Y84.8 Other medical procedures as the cause of abnormal reaction of the patient, or of later complication, without mention of misadventure at the time of the procedure; Z79.02 Long term (current) use of antithrombotics/antiplatelets; Z79.82 Long term (current) use of aspirin; Z79.51 Long term (current) use of inhaled steroids; Z79.899 Other long term (current) drug therapy
CPT/HCPCS: 36415; 37224; 37226; 71020; 74020; 76942; 80053; 80061; 82550; 82553; 82728; 83540; 83550; 83735; 84100; 84484; 85025; 85347; 85610; 85730; 86704; 86706; 87070; 87077; 87186; 87205; 87340; 90935; 93005; 96365; 96366; 96367; 96375; 96376; 99285